=== PATIENT | male | born 2000 | race African-American/Black ===

== ENCOUNTER 2022-08-02 15:15 | Inpatient (IN) | payer MEDICAID, SELFPAY ==
--- NOTE | ~2022-08-02 | CT_ITS ---
EXAMINATION: CT CERVICAL SPINE WITHOUT CONTRAST; UNENHANCED CT OF THE HEAD. CLINICAL INFORMATION: Found outside. Altered mental status. COMPARISON: None TECHNIQUE: Routine unenhanced CT of the head with multiple coronal and sagittal reformatted images; routine unenhanced CT of the cervical spine with multiple coronal and sagittal reformatted images. This CT examination was performed using dose optimization techniques as appropriate, variously including the following: *Automated exposure control *Adjustment of mA and/or kV according to patient size (this includes techniques or standardized protocols for targeted exams where dose is matched to indication/reason for exam; i.e. extremities or head) *Use of iterative reconstruction technique DLP: 2063 mGy-cm FINDINGS: CT head: No intracranial hemorrhage, tumors or acute infarcts are noted. The ventricles and sulci are normal in size and configuration. No focal parenchymal lesions of the brain identified. The orbits and globes are normal in appearance. No significant opacification of the visualized paranasal sinuses, mastoid air cells and middle ear cavities. CT cervical spine: No fractures or acute appearing subluxations are identified. No arthropathic changes noted. The visualized lung apices are clear. No prevertebral fluid collections or soft tissue inflammatory changes identified. CT/CT head/brain wo IV con IMPRESSION: Unenhanced CT of the head: *No acute intracranial abnormalities. CT cervical spine: *No acute abnormalities.
--- NOTE | ~2022-08-02 | CT_ITS ---
EXAMINATION: CT abdomen pelvis wo IV con, CT chest wo IV con CLINICAL INFORMATION: Altered mental status. Trauma. Found on ground. COMPARISON: CT head and cervical spine 08/02/2022. TECHNIQUE: Unenhanced CT of the chest, abdomen and pelvis Intravenous Contrast: None This CT examination was performed using dose optimization techniques as appropriate, variously including the following: *Automated exposure control *Adjustment of mA and/or kV according to patient size (this includes techniques or standardized protocols for targeted exams where dose is matched to indication/reason for exam; i.e. extremities or head) *Use of iterative reconstruction technique DLP: 945 mGy-cm FINDINGS: Lungs: Portions of the lung apices are excluded from the image [id number]. The visualized lungs demonstrate no pulmonary consolidation or suspicious nodules. No pleural effusions or pneumothoraces are identified. The distended colon no lymphadenopathy. No abnormal fluid collections. Normal caliber of the thoracic ureter. Normal heart size. No pericardial thickening or fluid collections. CHEST WALL: No axillary lymphadenopathy. No soft tissue emphysematous changes or inflammatory changes identified. Liver: Normal. Biliary system: Normal. Physiologically distended gallbladder. Pancreas: Normal. Spleen: Normal. Adrenal glands: Normal. Kidneys: Normal. No urolithiasis. Urinary bladder: Physiologically distended. Normal in appearance. Pelvic viscera: Normal prostate and seminal vesicles. Gastrointestinal system: No free intraperitoneal fluid or gas collections identified. The appendix is not visualized. No pericecal inflammatory changes noted. Normal appearance of the sigmoid and small bowel mesentery is. No free intraperitoneal fluid or gas collections identified. Abdominal wall: No abdominal wall hernias. No subcutaneous emphysematous changes or inflammatory changes noted. Abdominal lymphovascular structures: No abnormalities identified. Osseous structures of the chest, abdomen pelvis: The upper ribs are partially excluded from the image [id number] as are portions of the clavicles and scapulae. Mild multilevel thoracic Schmorl's node deformities are visualized. CT/CT abdomen pelvis wo IV con IMPRESSION: Unenhanced CT of the chest, abdomen and pelvis: *No acute abnormalities identified. *The appendix is not visualized. As clinically indicated, the appendix could be assessed with IV contrast enhanced CT.
--- NOTE | ~2022-08-02 | CT_ITS ---
EXAMINATION: CT CERVICAL SPINE WITHOUT CONTRAST; UNENHANCED CT OF THE HEAD. CLINICAL INFORMATION: Found outside. Altered mental status. COMPARISON: None TECHNIQUE: Routine unenhanced CT of the head with multiple coronal and sagittal reformatted images; routine unenhanced CT of the cervical spine with multiple coronal and sagittal reformatted images. This CT examination was performed using dose optimization techniques as appropriate, variously including the following: *Automated exposure control *Adjustment of mA and/or kV according to patient size (this includes techniques or standardized protocols for targeted exams where dose is matched to indication/reason for exam; i.e. extremities or head) *Use of iterative reconstruction technique DLP: 2063 mGy-cm FINDINGS: CT head: No intracranial hemorrhage, tumors or acute infarcts are noted. The ventricles and sulci are normal in size and configuration. No focal parenchymal lesions of the brain identified. The orbits and globes are normal in appearance. No significant opacification of the visualized paranasal sinuses, mastoid air cells and middle ear cavities. CT cervical spine: No fractures or acute appearing subluxations are identified. No arthropathic changes noted. The visualized lung apices are clear. No prevertebral fluid collections or soft tissue inflammatory changes identified. CT/CT cervical spine wo IV con IMPRESSION: Unenhanced CT of the head: *No acute intracranial abnormalities. CT cervical spine: *No acute abnormalities.
--- NOTE | ~2022-08-02 | CT_ITS ---
EXAMINATION: CT abdomen pelvis wo IV con, CT chest wo IV con CLINICAL INFORMATION: Altered mental status. Trauma. Found on ground. COMPARISON: CT head and cervical spine 08/02/2022. TECHNIQUE: Unenhanced CT of the chest, abdomen and pelvis Intravenous Contrast: None This CT examination was performed using dose optimization techniques as appropriate, variously including the following: *Automated exposure control *Adjustment of mA and/or kV according to patient size (this includes techniques or standardized protocols for targeted exams where dose is matched to indication/reason for exam; i.e. extremities or head) *Use of iterative reconstruction technique DLP: 945 mGy-cm FINDINGS: Lungs: Portions of the lung apices are excluded from the image [id number]. The visualized lungs demonstrate no pulmonary consolidation or suspicious nodules. No pleural effusions or pneumothoraces are identified. The distended colon no lymphadenopathy. No abnormal fluid collections. Normal caliber of the thoracic ureter. Normal heart size. No pericardial thickening or fluid collections. CHEST WALL: No axillary lymphadenopathy. No soft tissue emphysematous changes or inflammatory changes identified. Liver: Normal. Biliary system: Normal. Physiologically distended gallbladder. Pancreas: Normal. Spleen: Normal. Adrenal glands: Normal. Kidneys: Normal. No urolithiasis. Urinary bladder: Physiologically distended. Normal in appearance. Pelvic viscera: Normal prostate and seminal vesicles. Gastrointestinal system: No free intraperitoneal fluid or gas collections identified. The appendix is not visualized. No pericecal inflammatory changes noted. Normal appearance of the sigmoid and small bowel mesentery is. No free intraperitoneal fluid or gas collections identified. Abdominal wall: No abdominal wall hernias. No subcutaneous emphysematous changes or inflammatory changes noted. Abdominal lymphovascular structures: No abnormalities identified. Osseous structures of the chest, abdomen pelvis: The upper ribs are partially excluded from the image [id number] as are portions of the clavicles and scapulae. Mild multilevel thoracic Schmorl's node deformities are visualized. CT/CT chest wo IV con IMPRESSION: Unenhanced CT of the chest, abdomen and pelvis: *No acute abnormalities identified. *The appendix is not visualized. As clinically indicated, the appendix could be assessed with IV contrast enhanced CT.
--- NOTE | 2022-08-02 15:28 | ECG_ITS ---
Test Reason : ETOH Blood Pressure : / mmHG Vent. Rate : 068 BPM Atrial Rate : 068 BPM P-R Int : 180 ms QRS Dur : 096 ms QT Int : 396 ms P-R-T Axes : 054 086 039 degrees QTc Int : 421 ms Normal sinus rhythm Normal ECG No previous ECGs available Referred By: Deloris Lyle Electronically Signed By:JOSÉ MIGUEL DORADO
--- NOTE | 2022-08-02 15:35 | ED_ITS ---
HPI - Altered Mental Status General Chief Complaint: ETOH/Substance Use Stated Complaint: AMS DRUG USE Time Seen by Provider: 08/02/22 15:27 Source: patient and EMS Mode of arrival: EMS Limitations: altered mental status History of Present Illness HPI narrative: This is a 21-year-old male with a known medical history presenting to the emergency department via ambulance for altered mental status. Most of the hist ory was provided by EMS as patient is altered mental, according to EMS patient was found outside of an apartment building minimally responsive, he was sweating and sprawled out on the ground, he has a small abrasion to the right side of his forehead, unclear if fell or hit his head, patient unable to answer this question. According to patient's brother patient smoked laced marijuana earlier today however patient denies. Patient denies SI and HI. Able to nod his head to answer questions however not speaking much he tells me he is too tired. MD complaint: altered mental status Related Data Home Medications Medication Instructions Recorded Confirmed No Known Home Meds 08/02/22 08/02/22 Allergies Allergy/AdvReac Type Severity Reaction Status Date / Time No Known Allergies Allergy Verified 08/02/22 15:48 Review of Systems Review of Systems: Yes Unobtainable due to mental status PMFSH Past Medical History Attestation statement: The following information was validated with the patient. Source: old records reviewed and nursing notes reviewed Social History Social History Advance Directives: No Advance Directives Information Provided: No Physical Exam ED Vital Signs: Vital Signs - 24 hr 08/02/22 15:46 Pulse Rate 58 Respiratory Rate 18 Blood Pressure 131/79 Pulse Oximetry 99 Oxygen Delivery Method Room Air BMI result Body Mass Index 26.4 vss Appearance: Alert.? Oriented X3.? No acute distress.? Patient appears drowsy. Head: Normocephalic, + abrasion to right side of forehead , no step-offs or deformities Eyes: Pupils equal, round and reactive to light.? ENT: Pharynx normal.? Neck: Normal inspection.? Neck supple.? CVS: Normal heart rate and rhythm.? Pulses normal.? Respiratory: No respiratory distress.? Breath sounds normal.? Abdomen: Soft and nontender.? Skin: Skin warm and dry.? Normal skin color.? Normal skin turgor.? Extremities: No lower extremity edema.? No calf ttp. 5/5 strength to bilateral upper and lower extremities + abrasions to b/l knukles Back: No midline tenderness, no C-spine tenderness, full range of motion, no CVA tenderness bilaterally Neuro: Awake, alert, moving all extremities. Oriented to person, place, time and situation. No motor deficit.? No sensory deficit. CN 2-12 intact Course Reevaluation(s) Reevaluation #1: I was called over to the patient's bedside, patient had a 22 second long tonic clonic seizure, Versed was going to be administered however patient stopped seizing, at this time seizure protocols in place. Family member at the bedside reports that patient is usually slow mentally, and that they think that he was taking advantage of and given laced marijuana. Time: 16:00 Reevaluation #2: CBC with no acute findings. Chemistry pending. Ethanol negative. CASTILLO and UA pending. Patient currently being brought to CT scan, delay in obtaining CT secondary to waiting for CT to clear out from another patient. Time: 16:27 Reevaluation #3: CASTILLO positive for marijuana. UA with no signs of acute infection. Chemistry with slightly elevated magnesium, CPK in the 400s, not consistent with rhabdomyolysis however patient receiving hydration. CT of head, cervical spine, abdomen and pelvis and chest with no acute findings. Patient will be admitted to the hospitalist for her new onset seizures, altered mental status. Time: 20:18 MDM - Altered Mental Status [facility] Narrative Medical decision making narrative: 1520 21-year-old male presenting for altered mental status, brother reports that he may have smoked laced marijuana. Patient tells me he is too tired to answer any of my questions, however alert and oriented x3. Physical examination with a small abrasion to the right side of patient's forehead, patient alert and oriented x3, following basic commands however dozing off during my examination, pupils dilated, regular rate and rhythm, lungs clear abdomen soft nontender nondistended. Neuro nonfocal NIH stroke scale of 0, GCS of 15. Plan at this time is to obtain basic labs, urine, CASTILLO, drug tox, head CT. Medical Records Attestation: I reviewed the patient's medical records. Lab Data Attestation: I reviewed the patient's lab results. Result diagrams: 08/02/22 15:57 08/02/22 15:57 Labs: Lab Results 08/02/22 08/02/22 08/02/22 Range/Units 15:57 15:57 15:57 WBC 7.1 (4.8-10.8) X10*3/uL RBC 5.18 (4.60-5.80) X10*6/uL Hgb 16.0 (14.0-18.0) g/dl Hct 45.9 (42.0-52.0) % MCV 88.6 (80.0-98.0) fL MCH 30.9 (27.0-33.0) pg MCHC 34.9 (31.0-36.0) g/dl RDW 12.3 (11.0-16.0) % Plt Count 234 (160-400) X10*3/uL MPV 9.9 (9.4-12.4) fL Immature Gran % (Auto) 0.4 (0.0-0.4) % Neut % (Auto) 71.4 (45-73) % Lymph % (Auto) 23.7 (20-40) % [place] % (Auto) 3.0 (2-11) % Eos % (Auto) 1.1 (0-4) % Baso % (Auto) 0.4 (0-2) % Lymph # (Auto) 1.7 (1.2-4.9) X10*3/uL [place] # (Auto) 0.2 (0.1-1.2) X10*3/uL Eos # (Auto) 0.1 (0.0-0.4) X10*3/uL Baso # (Auto) 0.0 (0.0-0.2) X10*3/uL Abs Immat Gran (auto) 0.03 (0.00-0.03) X10*3/uL Absolute Neuts (auto) 5.0 (2.0-8.3) x10*3/uL Absolute Nucleated RBC 0.000 (0.0-0.012) X10*3/uL Nucleated RBC % (auto) 0.0 (0.0-0.2) /100WBC Sodium 141 (135-145) mmol/L Potassium 4.5 (3.3-5.1) mmol/L Chloride 111 H (96-108) mmol/L Carbon Dioxide 15 L (22-29) mmol/L Anion Gap 20 (12-20) BUN 10 (9-16) mg/dL Creatinine 1.18 (0.5-1.4) mg/dL Estim Creat Clear Calc 110.9 Estimated GFR > 60 Random Glucose 75 (60-115) mg/dL Calcium 9.3 (8.4-10.2) mg/dL Magnesium 2.9 H (1.6-2.6) mg/dL Total Bilirubin 0.5 (0.0-1.0) mg/dL AST 24 (5-37) U/L ALT 16 (0-40) U/L Alkaline Phosphatase 60 (39-117) U/L Total Creatine Kinase 472 H (38-174) U/L Total Protein 7.5 (6.5-8.0) g/dL Albumin 4.4 (3.5-5.0) g/dL Urine Color Urine Appearance Urine pH (5.0-9.0) Ur Specific [place] (1.005-1.025) Urine Protein (Neg-Trace) mg/dL Urine Glucose (UA) (Negative) mg/dL Urine Ketones (Negative) mg/dL Urine Blood (Negative) Urine Nitrite (Negative) Ur Leukocyte Esterase (Negative) Urine RBC (0-2) /HPF Urine WBC (0-5) /HPF Ur Squamous Epith Cells (0-2) /HPF Urine Bacteria (None Seen) Hyaline Casts (0-2) /LPF Urine Opiates Screen (Not Detect) Urine Fentanyl Screen (Not Detect) Ur Barbiturates Screen (Not Detect) Ur Phencyclidine Scrn (Not Detect) Ur Amphetamines Screen (Not Detect) U Benzodiazepines Scrn (Not Detect) Urine Cocaine Screen (Not Detect) U Marijuana (THC) Screen (Not Detect) Ethyl Alcohol < 10 mg/dL 08/02/22 08/02/22 Range/Units 16:28 16:28 WBC (4.8-10.8) X10*3/uL RBC (4.60-5.80) X10*6/uL Hgb (14.0-18.0) g/dl Hct (42.0-52.0) % MCV (80.0-98.0) fL MCH (27.0-33.0) pg MCHC (31.0-36.0) g/dl RDW (11.0-16.0) % Plt Count (160-400) X10*3/uL MPV (9.4-12.4) fL Immature Gran % (Auto) (0.0-0.4) % Neut % (Auto) (45-73) % Lymph % (Auto) (20-40) % [place] % (Auto) (2-11) % Eos % (Auto) (0-4) % Baso % (Auto) (0-2) % Lymph # (Auto) (1.2-4.9) X10*3/uL [place] # (Auto) (0.1-1.2) X10*3/uL Eos # (Auto) (0.0-0.4) X10*3/uL Baso # (Auto) (0.0-0.2) X10*3/uL Abs Immat Gran (auto) (0.00-0.03) X10*3/uL Absolute Neuts (auto) (2.0-8.3) x10*3/uL Absolute Nucleated RBC (0.0-0.012) X10*3/uL Nucleated RBC % (auto) (0.0-0.2) /100WBC Sodium (135-145) mmol/L Potassium (3.3-5.1) mmol/L Chloride (96-108) mmol/L Carbon Dioxide (22-29) mmol/L Anion Gap (12-20) BUN (9-16) mg/dL Creatinine (0.5-1.4) mg/dL Estim Creat Clear Calc Estimated GFR Random Glucose (60-115) mg/dL Calcium (8.4-10.2) mg/dL Magnesium (1.6-2.6) mg/dL Total Bilirubin (0.0-1.0) mg/dL AST (5-37) U/L ALT (0-40) U/L Alkaline Phosphatase (39-117) U/L Total Creatine Kinase (38-174) U/L Total Protein (6.5-8.0) g/dL Albumin (3.5-5.0) g/dL Urine Color Yellow Urine Appearance Clear Urine pH 5.5 (5.0-9.0) Ur Specific [place] 1.020 (1.005-1.025) Urine Protein 30 (1+) H (Neg-Trace) mg/dL Urine Glucose (UA) Negative (Negative) mg/dL Urine Ketones Trace (Negative) mg/dL Urine Blood Trace H (Negative) Urine Nitrite Negative (Negative) Ur Leukocyte Esterase Negative (Negative) Urine RBC 0-2 (0-2) /HPF Urine WBC 0-5 (0-5) /HPF Ur Squamous Epith Cells 0-2 (0-2) /HPF Urine Bacteria None Seen (None Seen) Hyaline Casts 0-2 (0-2) /LPF Urine Opiates Screen Not Detected (Not Detect) Urine Fentanyl Screen Not Detected (Not Detect) Ur Barbiturates Screen Not Detected (Not Detect) Ur Phencyclidine Scrn Not Detected (Not Detect) Ur Amphetamines Screen Not Detected (Not Detect) U Benzodiazepines Scrn Not Detected (Not Detect) Urine Cocaine Screen Not Detected (Not Detect) U Marijuana (THC) Screen POSITIVE H (Not Detect) Ethyl Alcohol mg/dL ECG Data ECG #1: Attestation: I personally reviewed and interpreted this ECG as follows: ECG interpretation date: 08/02/22 ECG interpretation time: 16:26 Prior ECG tracings: available for review Interpretation: Ventricular rate of 68, IA normal, QRS normal, QT/QTC normal. EKG with normal sinus rhythm no ST elevations or inversions concerning for ischemia. At this t anastasiia no previous to compare with Critical Care Time Critical Care Time Critical Care Time: No Discharge Plan Discharge Clinical Impression: Altered mental status, Seizure Patient Disposition: Admitted As Inpatient Prescriptions: No Action No Known Home Meds
[2022-08-02 15:44] VITALS: BP 138/84; PULSE 75; O2SAT 97
[2022-08-02 15:46] VITALS: BP 131/79; PULSE 58; RESP 18; O2SAT 99; BMI 26.4
[2022-08-02 16:02] LABS: MANUAL DIFF FLAG NO
[2022-08-02 16:08] LABS: Basophils Percent Auto 0.4 % (0-2); Eosinophils Absolute Auto 0.1 X10*3/uL (0.0-0.4); Eosinophils Percent Auto 1.1 % (0-4); Hematocrit 45.9 % (42.0-52.0); Imm Gran Abs Auto 0.03 X10*3/uL (0.00-0.03); Imm Gran Pct Auto 0.4 % (0.0-0.4); Lymphocytes Absolute Auto 1.7 X10*3/uL (1.2-4.9); Lymphocytes Percent Auto 23.7 % (20-40); Mean Corpuscular HGB Conc 34.9 g/dl (31.0-36.0); Mean Corpuscular Hemoglobin 30.9 pg (27.0-33.0); Mean Corpuscular Volume 88.6 fL (80.0-98.0); Mean Platelet Volume 9.9 fL (9.4-12.4); Monocytes Absolute Auto 0.2 X10*3/uL (0.1-1.2); Neutrophils Percent Auto 71.4 % (45-73); Platelet Count 234 X10*3/uL (160-400); Red Blood Count 5.18 X10*6/uL (4.60-5.80); Red Cell Distribution Width 12.3 % (11.0-16.0); White Blood Count 7.1 X10*3/uL (4.8-10.8)
[2022-08-02 16:18] LABS: Ethanol < 10 mg/dL
--- NOTE | 2022-08-02 16:26 | PHA.MEDREC ---
Pharmacy Consult ? Medication Reconciliation Pharmacy has completed the medication reconciliation. Patient's niece reported patient was on medications when he was younger, but has not been on anything recently. PDMP and claim history also report no medications. Cynthia Boudreaux, PharmD
[2022-08-02 16:52] LABS: Appearance Urine Clear; Color Urine Yellow; Glucose Urine UA Negative (Negative); Leukocyte Esterase Urine Negative (Negative); Nitrite Urine Negative (Negative); PH 5.5 (5.0-9.0); Urine Blood Trace (Negative); Urine Ketones Trace mg/dL (Negative); Urine Protein 30 (1+) mg/dL (Neg-Trace)
[2022-08-02 16:54] LABS: Amphetamine Screen Urine Not Detected (Not Detect); Barbiturates, Urine Not Detected (Not Detect); Benzodiazepines Screen Urine Not Detected (Not Detect); Cannabinoid Screen Urine POSITIVE (Not Detect); Cocaine Screen Urine Not Detected (Not Detect); Fentanyl, urine Not Detected (Not Detect); Opiate Screen Urine Not Detected (Not Detect); Phencyclidine Screen Urine Not Detected (Not Detect)
[2022-08-02 17:00] LABS: Bacteria Urine None Seen (None Seen); Hyaline Casts Urine 0-2 /LPF (0-2); RBC Urine 0-2 /HPF (0-2); Squamous Epithelial Cell Urine 0-2 /HPF (0-2); WBC Urine 0-5 /HPF (0-5)
[2022-08-02] MEDS: Midazolam HCl/PF 2 MG/2 ML VIAL IVPUSH (17:24)
[2022-08-02] MEDS: Midazolam HCl/PF 2 MG/2 ML VIAL 1 MG IVPUSH (17:25)
[2022-08-02] MEDS: ondansetron HCL 4 MG/2 ML VIAL IVPUSH (17:25)
[2022-08-02] MEDS: 0.9 % Sodium Chloride 1,000 ML 999 ML IV (17:26)
[2022-08-02 17:41] LABS: Alanine Aminotransferase 16 U/L (0-40); Albumin Level 4.4 g/dL (3.5-5.0); Alkaline Phosphatase 60 U/L (39-117); Anion Gap 20 (12-20); Aspartate Amino Transferase 24 U/L (5-37); Bilirubin Total 0.5 mg/dL (0.0-1.0); Blood Urea Nitrogen 10 mg/dL (9-16); Calcium 9.3 mg/dL (8.4-10.2); Carbon Dioxide 15 mmol/L (22-29); Chloride 111 mmol/L (96-108); Creatinine Clr Calc Pharmacy 110.9; Estimated Glomerular Filt Rate > 60; Glucose Random 75 mg/dL (60-115); Magnesium 2.9 mg/dL (1.6-2.6); Potassium 4.5 mmol/L (3.3-5.1); Sodium 141 mmol/L (135-145); Total Protein 7.5 g/dL (6.5-8.0)
--- NOTE | 2022-08-02 18:57 | PC.NURSE ---
This nurse witnessed pt seize for a total time of 22 seconds. Pt froze, contracted their arms and legs then began to shake. Pt did throw up once, SYLVESTER Cortez suctioned pt. Pt post-ictal sleepy, and not responsive to voice commands. Responsive to touch. CIARA Forrest witnessed end of seizure.
--- NOTE | 2022-08-02 19:47 | MHC.RECOVSUP ---
? Reason for consult:EOTH o Current location:ED02 o Identified substance use concern: - Support ? Intervention: o Harm reduction discussion ? Plan:Going home ? Additional information:Pt says he doesn't have an issue with alcohol, and doesn't need detox/treatment
--- NOTE | 2022-08-02 20:20 | ECG_ITS ---
Test Reason : repeat Blood Pressure : / mmHG Vent. Rate : 052 BPM Atrial Rate : 052 BPM P-R Int : 150 ms QRS Dur : 100 ms QT Int : 422 ms P-R-T Axes : 047 075 031 degrees QTc Int : 392 ms Sinus bradycardia Otherwise normal ECG When compared with ECG of 02-AUG-2022 16:00, No significant change was found Referred By: Deloris Lyle Electronically Signed By:OJSÉ MIGUEL DORADO
[2022-08-02 21:04] VITALS: PULSE 55
--- NOTE | 2022-08-02 21:06 | P.HPHOSP_ITS ---
History of Present Illness Date of Service: 08/02/22 Chief Complaint: Confusion 21-year-old male with no significant past medical history presented to the hospital with a chief complaint of confusion. At the time of my entry patient is alert and oriented, denies any complaints. Mentions is not sure why he was brought to the hospital. Denies any prior history of seizures. Denies any chest pain palpitations lightheadedness or dizziness. Denies any fever chills cough or sputum production. Denies any headaches numbness tingling or focal weakness. Denies any recent travel or sick contacts. Mentions he occasionally uses cannabis. Denies any alcohol the other illicit drug use. Review of all other systems is negative except mentioned above ER course: Per ER team patient was initially brought in by the family because of confusion, found on the ground. After came to the hospital patient had 22nd episode of tonic-clonic seizure with tongue biting. Patient was given Versed. Patient was briefly postictal. On labs noted to have slightly decreased serum bicarb otherwise within normal limit s; lactate levels pending. CT head showed no acute findings. Admitted for further management for possible new onset seizures. [facility] Pertinent family history: Reviewed Social History Advance Directives: No Advance Directives Information Provided: No Meds Allergies Allergy/AdvReac Type Severity Reaction Status Date / Time No Known Allergies Allergy Verified 08/02/22 15:48 Active Medications: Current Medications Heparin Sodium (Porcine) (Heparin Sodium,Porcine 5,000 Unit/Ml Vial) 5,000 unit SUBCUT Q8H ON LICENSE OF [facility] Pharmacy Consult (Consult Rx Perform Med Rec) 1 each MISCELLANE ONCE PRN PRN Reason: Consult order Sodium Chloride (0.9 % Sodium Chloride Flush 3 Ml Syringe) 3 ml IVFLUSH QSHIFT ON LICENSE OF [facility] Home Medications Medication Instructions Recorded Confirmed Last Taken Type No Known Home Meds 08/02/22 08/02/22 Unknown History Physical Exam Vital Signs and Narrative: Vital Signs: Last Vital Signs Pulse 58 08/02/22 15:46 Resp 18 08/02/22 15:46 BP 131/79 08/02/22 15:46 Pulse Ox 99 08/02/22 15:46 O2 Del Method 08/02/22 15:46 BMI result Body Mass Index 26.4 Gen: Appears be in no acute distress HEENT: NCAT, Moist mucosa. Pulmonary: Vesicular breath sounds, fair air entry CVS: Normal S1-S2 Abdomen: BS+, Soft, Nontender Extremities: Warm well perfused Neuro: Alert and awake. Results Labs CBC and Chem 7: 08/02/22 15:57 08/02/22 15:57 Labs: Laboratory Results - last 24 hr 08/02/22 08/02/22 08/02/22 15:57 15:57 15:57 MCV 88.6 MCH 30.9 MCHC 34.9 RDW 12.3 Plt Count 234 MPV 9.9 Immature Gran % (Auto) 0.4 Neut % (Auto) 71.4 Lymph % (Auto) 23.7 [place] % (Auto) 3.0 Eos % (Auto) 1.1 Baso % (Auto) 0.4 Lymph # (Auto) 1.7 [place] # (Auto) 0.2 Eos # (Auto) 0.1 Baso # (Auto) 0.0 Abs Immat Gran (auto) 0.03 Absolute Neuts (auto) 5.0 Absolute Nucleated RBC 0.000 Nucleated RBC % (auto) 0.0 Anion Gap 20 Estim Creat Clear Calc 110.9 Estimated GFR > 60 Random Glucose 75 Calcium 9.3 Magnesium 2.9 H Total Bilirubin 0.5 AST 24 ALT 16 Alkaline Phosphatase 60 Total Creatine Kinase 472 H Total Protein 7.5 Albumin 4.4 Urine Color Urine Appearance Urine pH Ur Specific [place] Urine Protein Urine Glucose (UA) Urine Ketones Urine Blood Urine Nitrite Ur Leukocyte Esterase Urine RBC Urine WBC Ur Squamous Epith Cells Urine Bacteria Hyaline Casts Urine Opiates Screen Urine Fentanyl Screen Ur Barbiturates Screen Ur Phencyclidine Scrn Ur Amphetamines Screen U Benzodiazepines Scrn Urine Cocaine Screen U Marijuana (THC) Screen Ethyl Alcohol < 10 08/02/22 08/02/22 16:28 16:28 MCV MCH MCHC RDW Plt Count MPV Immature Gran % (Auto) Neut % (Auto) Lymph % (Auto) [place] % (Auto) Eos % (Auto) Baso % (Auto) Lymph # (Auto) [place] # (Auto) Eos # (Auto) Baso # (Auto) Abs Immat Gran (auto) Absolute Neuts (auto) Absolute Nucleated RBC Nucleated RBC % (auto) Anion Gap Estim Creat Clear Calc Estimated GFR Random Glucose Calcium Magnesium Total Bilirubin AST ALT Alkaline Phosphatase Total Creatine Kinase Total Protein Albumin Urine Color Yellow Urine Appearance Clear Urine pH 5.5 Ur Specific [place] 1.020 Urine Protein 30 (1+) H Urine Glucose (UA) Negative Urine Ketones Trace Urine Blood Trace H Urine Nitrite Negative Ur Leukocyte Esterase Negative Urine RBC 0-2 Urine WBC 0-5 Ur Squamous Epith Cells 0-2 Urine Bacteria None Seen Hyaline Casts 0-2 Urine Opiates Screen Not Detected Urine Fentanyl Screen Not Detected Ur Barbiturates Screen Not Detected Ur Phencyclidine Scrn Not Detected Ur Amphetamines Screen Not Detected U Benzodiazepines Scrn Not Detected Urine Cocaine Screen Not Detected U Marijuana (THC) Screen POSITIVE H Ethyl Alcohol Imaging Radiologist's Impressions: Impressions Head CT 08/02/22 17:21 IMPRESSION: Unenhanced CT of the head: *No acute intracranial abnormalities. CT cervical spine: *No acute abnormalities. Cervical Spine CT 08/02/22 17:23 IMPRESSION: Unenhanced CT of the head: *No acute intracranial abnormalities. CT cervical spine: *No acute abnormalities. Abdomen/Pelvis CT 08/02/22 17:24 IMPRESSION: Unenhanced CT of the chest, abdomen and pelvis: *No acute abnormalities identified. *The appendix is not visualized. As clinically indicated, the appendix could be assessed with IV contrast enhanced CT. Chest CT 08/02/22 17:27 IMPRESSION: Unenhanced CT of the chest, abdomen and pelvis: *No acute abnormalities identified. *The appendix is not visualized. As clinically indicated, the appendix could be assessed with IV contrast enhanced CT. Assessment and Plan (1) Seizure: Status: Acute Plan 21-year-old male with no significant past medical history presented to the hospital with a chief complaint of confusion./seizure. Seizure: Patient currently alert and awake, oriented x3. Exam nonfocal. CT head showed no acute findings. Seizure precautions Versed p.r.n. Neurology consult U tox positive for cannabis NPO Gentle IV fluids DVT prophylaxis: Subcu heparin Code status: Full code Quality Stroke Does the patient have a stroke diagnosis?: No VTE Prior VTE?: No VTE Risk Level:: Medical - moderate - high VTE Device Contraindication: Treatment Not Indicated VTE Drug Contraindication: N/A - Med Ordered
[2022-08-02 21:30] LABS: Lactic Acid 2.2 mmol/L (0.5-2.0)
[2022-08-02] MEDS: Dextrose 5 % and 0.45 % NaCl 1,000 ML 100 ML IVCONT (22:27)
[2022-08-02 22:40] VITALS: BP 106/70; PULSE 56; RESP 14; O2SAT 100
[2022-08-02 23:05] LABS: Reflex Lactate? Lactic Acid Added
[2022-08-02 23:59] LABS: ~Lactic Acid-LAB USE ONLY 2.7 mmol/L (0.5-2.0)
[2022-08-03 00:10] LABS: COVID-19 Test Negative (Negative)
[2022-08-03] MEDS: 0.9 % Sodium Chloride Flush 3 ML SYRINGE IVFLUSH (00:42)
[2022-08-03 01:43] LABS: Reflex Lactate? 2 Y
[2022-08-03 02:00] VITALS: BP 102/61; PULSE 49; O2SAT 100
[2022-08-03 02:21] LABS: ~Lactic Acid-LAB USE ONLY 1.2 mmol/L (0.5-2.0)
[2022-08-03 03:36] VITALS: BP 121/67; PULSE 47; RESP 18; TEMP 37.2; O2SAT 99
--- NOTE | 2022-08-03 05:42 | PC.NURSE ---
Report to inpatient RN. Will transfer patient in 10minutes.
[2022-08-03 06:14] LABS: MANUAL DIFF FLAG NO
[2022-08-03 06:16] VITALS: BP 112/60; PULSE 54; RESP 18; TEMP 36.7; O2SAT 93
[2022-08-03 06:17] LABS: Basophils Percent Auto 0.2 % (0-2); Eosinophils Percent Auto 0.1 % (0-4); Hematocrit 44.6 % (42.0-52.0); Hemoglobin 15.9 g/dl (14.0-18.0); Imm Gran Abs Auto 0.04 X10*3/uL (0.00-0.03); Imm Gran Pct Auto 0.3 % (0.0-0.4); Lymphocytes Absolute Auto 1.8 X10*3/uL (1.2-4.9); Mean Corpuscular HGB Conc 35.7 g/dl (31.0-36.0); Mean Corpuscular Hemoglobin 31.5 pg (27.0-33.0); Mean Corpuscular Volume 88.5 fL (80.0-98.0); Monocytes Absolute Auto 0.7 X10*3/uL (0.1-1.2); Monocytes Percent Auto 5.7 % (2-11); Neutrophils Absolute Auto 9.2 x10*3/uL (2.0-8.3); Neutrophils Percent Auto 78.7 % (45-73); Platelet Count 202 X10*3/uL (160-400); Red Blood Count 5.04 X10*6/uL (4.60-5.80); Red Cell Distribution Width 12.3 % (11.0-16.0); White Blood Count 11.6 X10*3/uL (4.8-10.8)
[2022-08-03] MEDS: Heparin Sodium,Porcine 5,000 UNIT/ML VIAL 5000 UNIT SUBCUT (06:31)
[2022-08-03 06:33] LABS: Anion Gap 15 (12-20); Blood Urea Nitrogen 9 mg/dL (9-16); Calcium 9.2 mg/dL (8.4-10.2); Carbon Dioxide 23 mmol/L (22-29); Chloride 107 mmol/L (96-108); Creatinine Clr Calc Pharmacy 110.9; Estimated Glomerular Filt Rate > 60; Glucose Random 103 mg/dL (60-115); Sodium 141 mmol/L (135-145)
[2022-08-03] MEDS: Dextrose 5 % and 0.45 % NaCl 1,000 ML 100 ML IVCONT ×2 (07:31→09:50)
[2022-08-03 11:27] VITALS: BP 122/70; PULSE 50; RESP 17; TEMP 36.6; O2SAT 98
--- NOTE | 2022-08-03 12:56 | P.DS_ITS ---
DS: Providers Provider Date of Service: 08/03/22 Date of admission: 08/02/22 21:04 Date of discharge: 08/03/22 Primary care physician: [facility] Consults: 08/02/22 21:04 Consult to Neurology Routine Consulting Provider: [facility] Reason for consultation: Seizure DS: Diagnosis Discharge Diagnosis (1) Seizure: Status: Acute DS: Summary Hospital Course Hospital Course: 21-year-old male with no significant past medical history presented to the hospital with a chief complaint of confusion.?ER course: Per ER team patient was initially brought in by the family because of confusion, found on the ground.? After came to the hospital patient had 22nd episode of tonic-clonic seizure with tongue biting.? Patient was given Versed.? Patient was briefly postictal.? On labs noted to have slightly decreased serum bicarb otherwise within normal limits; lactate levels pending.? CT head showed no acute findings.? Admitted for further management for possible new onset seizures. hospital course Admitted overnight where her no further seizures were observed. Discussed with Neurology; discharge on Keppra 500 b.i.d. and set up office appointment later this week. He is discharged in stable/improved condition Time Spent with Patient Time attestation: Total time spent providing and/or coordinating discharge services: Discharge coordination time: Greater than 30 minutes Quality: Safe Use of Opioids Does Pt have an Active Cancer Diagnosis on the Problem List?: No Quality: Stroke Does the patient have a stroke diagnosis?: No Physical Exam Vital Signs: Vital Signs: Last Vital Signs Temp 97.8 F 08/03/22 11:27 Pulse 50 08/03/22 11:27 Resp 17 08/03/22 11:27 BP 122/70 08/03/22 11:27 Pulse Ox 98 08/03/22 11:27 O2 Del Method 08/03/22 11:27 BMI result Body Mass Index 26.4 Const: Other: awake alert oriented x3 no acute distress Resp: Other: clear to auscultation bilaterally no rales rhonchi or wheezes Cardio: Other: soft nontender nondistended normoactive bowel sounds GI: Other: soft nontender nondistended normoactive bowel sounds Neuro: Other: cranial nerves 2-12 grossly intact as tested. Motor is 5/5 all extremities. Sensation is intact cognition is appropriate Extrem: Other: no edema bilateral DS: Data Data Completed and Pending Labs on day of discharge: Laboratory Results - last 24 hr 08/02/22 08/02/22 08/02/22 15:57 15:57 15:57 WBC 7.1 RBC 5.18 Hgb 16.0 Hct 45.9 MCV 88.6 MCH 30.9 MCHC 34.9 RDW 12.3 Plt Count 234 MPV 9.9 Immature Gran % (Auto) 0.4 Neut % (Auto) 71.4 Lymph % (Auto) 23.7 [place] % (Auto) 3.0 Eos % (Auto) 1.1 Baso % (Auto) 0.4 Lymph # (Auto) 1.7 [place] # (Auto) 0.2 Eos # (Auto) 0.1 Baso # (Auto) 0.0 Abs Immat Gran (auto) 0.03 Absolute Neuts (auto) 5.0 Absolute Nucleated RBC 0.000 Nucleated RBC % (auto) 0.0 Sodium 141 Potassium 4.5 Chloride 111 H Carbon Dioxide 15 L Anion Gap 20 BUN 10 Creatinine 1.18 Estim Creat Clear Calc 110.9 Estimated GFR > 60 Random Glucose 75 Lactic Acid Lactic Acid F/U @ 2Hr Lactic Acid F/U @ 4Hr Calcium 9.3 Magnesium 2.9 H Total Bilirubin 0.5 AST 24 ALT 16 Alkaline Phosphatase 60 Total Creatine Kinase 472 H Total Protein 7.5 Albumin 4.4 Urine Color Urine Appearance Urine pH Ur Specific Shannon Urine Protein Urine Glucose (UA) Urine Ketones Urine Blood Urine Nitrite Ur Leukocyte Esterase Urine RBC Urine WBC Ur Squamous Epith Cells Urine Bacteria Hyaline Casts Urine Opiates Screen Urine Fentanyl Screen Ur Barbiturates Screen Ur Phencyclidine Scrn Ur Amphetamines Screen U Benzodiazepines Scrn Urine Cocaine Screen U Marijuana (THC) Screen Ethyl Alcohol < 10 COVID-19 ([facility]) COVID-19 Clin Com 08/02/22 08/02/22 08/02/22 16:28 16:28 21:01 WBC RBC Hgb Hct MCV MCH MCHC RDW Plt Count MPV Immature Gran % (Auto) Neut % (Auto) Lymph % (Auto) [place] % (Auto) Eos % (Auto) Baso % (Auto) Lymph # (Auto) [place] # (Auto) Eos # (Auto) Baso # (Auto) Abs Immat Gran (auto) Absolute Neuts (auto) Absolute Nucleated RBC Nucleated RBC % (auto) Sodium Potassium Chloride Carbon Dioxide Anion Gap BUN Creatinine Estim Creat Clear Calc Estimated GFR Random Glucose Lactic Acid 2.2 H* Lactic Acid F/U @ 2Hr Lactic Acid F/U @ 4Hr Calcium Magnesium Total Bilirubin AST ALT Alkaline Phosphatase Total Creatine Kinase Total Protein Albumin Urine Color Yellow Urine Appearance Clear Urine pH 5.5 Ur Specific Shannon 1.020 Urine Protein 30 (1+) H Urine Glucose (UA) Negative Urine Ketones Trace Urine Blood Trace H Urine Nitrite Negative Ur Leukocyte Esterase Negative Urine RBC 0-2 Urine WBC 0-5 Ur Squamous Epith Cells 0-2 Urine Bacteria None Seen Hyaline Casts 0-2 Urine Opiates Screen Not Detected Urine Fentanyl Screen Not Detected Ur Barbiturates Screen Not Detected Ur Phencyclidine Scrn Not Detected Ur Amphetamines Screen Not Detected U Benzodiazepines Scrn Not Detected Urine Cocaine Screen Not Detected U Marijuana (THC) Screen POSITIVE H Ethyl Alcohol COVID-19 ([facility]) COVID-19 [employer] Com 08/02/22 08/02/22 08/03/22 23:39 23:51 02:04 WBC RBC Hgb Hct MCV MCH MCHC RDW Plt Count MPV Immature Gran % (Auto) Neut % (Auto) Lymph % (Auto) [place] % (Auto) Eos % (Auto) Baso % (Auto) Lymph # (Auto) [place] # (Auto) Eos # (Auto) Baso # (Auto) Abs Immat Gran (auto) Absolute Neuts (auto) Absolute Nucleated RBC Nucleated RBC % (auto) Sodium Potassium Chloride Carbon Dioxide Anion Gap BUN Creatinine Estim Creat Clear Calc Estimated GFR Random Glucose Lactic Acid Lactic Acid F/U @ 2Hr 2.7 H* Lactic Acid F/U @ 4Hr 1.2 Calcium Magnesium Total Bilirubin AST ALT Alkaline Phosphatase Total Creatine Kinase Total Protein Albumin Urine Color Urine Appearance Urine pH Ur Specific Shannon Urine Protein Urine Glucose (UA) Urine Ketones Urine Blood Urine Nitrite Ur Leukocyte Esterase Urine RBC Urine WBC Ur Squamous Epith Cells Urine Bacteria Hyaline Casts Urine Opiates Screen Urine Fentanyl Screen Ur Barbiturates Screen Ur Phencyclidine Scrn Ur Amphetamines Screen U Benzodiazepines Scrn Urine Cocaine Screen U Marijuana (THC) Screen Ethyl Alcohol COVID-19 ([facility]) Negative COVID-19 [employer] Com See Note 08/03/22 08/03/22 06:03 06:03 WBC 11.6 H RBC 5.04 Hgb 15.9 Hct 44.6 MCV 88.5 MCH 31.5 MCHC 35.7 RDW 12.3 Plt Count 202 MPV 10.0 Immature Gran % (Auto) 0.3 Neut % (Auto) 78.7 H Lymph % (Auto) 15.0 L [place] % (Auto) 5.7 Eos % (Auto) 0.1 Baso % (Auto) 0.2 Lymph # (Auto) 1.8 [place] # (Auto) 0.7 Eos # (Auto) 0.0 Baso # (Auto) 0.0 Abs Immat Gran (auto) 0.04 H Absolute Neuts (auto) 9.2 H Absolute Nucleated RBC 0.000 Nucleated RBC % (auto) 0.0 Sodium 141 Potassium 4.0 Chloride 107 Carbon Dioxide 23 Anion Gap 15 BUN 9 Creatinine 1.18 Estim Creat Clear Calc 110.9 Estimated GFR > 60 Random Glucose 103 D Lactic Acid Lactic Acid F/U @ 2Hr Lactic Acid F/U @ 4Hr Calcium 9.2 Magnesium Total Bilirubin AST ALT Alkaline Phosphatase Total Creatine Kinase Total Protein Albumin Urine Color Urine Appearance Urine pH Ur Specific Shannon Urine Protein Urine Glucose (UA) Urine Ketones Urine Blood Urine Nitrite Ur Leukocyte Esterase Urine RBC Urine WBC Ur Squamous Epith Cells Urine Bacteria Hyaline Casts Urine Opiates Screen Urine Fentanyl Screen Ur Barbiturates Screen Ur Phencyclidine Scrn Ur Amphetamines Screen U Benzodiazepines Scrn Urine Cocaine Screen U Marijuana (THC) Screen Ethyl Alcohol COVID-19 ([facility]) COVID-19 Clin Com Discharge Plan Discharge Patient Disposition: Home, Self-Care Discharge Diagnosis: new onset seizure Referrals: [facility] [Primary Care Provider] - 1 Week Discharge Medications: New levetiracetam [Keppra] 500 mg tablet 500 mg PO BID Qty: 60 0RF Discharge Orders: Discharge Order (Routine); Ordered 08/03/22 Ordered By: Jeffry Velasco Diet: Advance to usual diet Activity on Discharge: As tolerated Stand Alone Forms: Patient Portal Discharge page Care Plan Goals: continue Keppra 500 mg twice daily. Health Concerns: avoid alcohol/ marijuana. No driving until seen by Dr. Swift Plan of Treatment: call Dr. Burrows office Thursday to set up an appointment. Assessment: see discharge summary
--- NOTE | 2022-08-03 13:13 | MHC.CM.PN ---
Addendum entered by Hilda Luo 08/03/22 14:50: PT TRANSPORTED VIA LYFT Original Note: PT REPORTS HE LIVES ALONE AND IS INDEPENDENT WITH ALL CARE PT DENIES USE OF SERVICES OR DME PT REPORTS HE GOES TO [facility] FOR PRIMARY CARE AND SEES DR CHRISTIE HE REPORTS HE DID NOT GET THE COVID VAX AND TENDS TO ISOLATE SO DID NOT FEEL IT NECESSARY PT DOES NOT HAVE A HCP, HE DECLINED TO COMPLETE ONE TODAY BUT DID TAKE INFO AND BLANK DOCUMENT TO CONSIDER LATER PT WILL BE DISCHARGED LATER TODAY WITH NO SERVICES PT REPORTS A PREFERENCE TO WALK BUT AGREES TO LET CM ATTEMPT TO ARRANGE A LYFT FIRST
== END 2022-08-03 14:20 | disposition home or self-care (01) | DRG 53 ==
LOC: HO.ED 20:21 → HO.EDOVER 21:08 → HO.S3 08-03 05:30
PROVIDERS: Physician Assistant; Admitting Provider Hospitalist; Emergency Provider Emergency Medicine; Visit Provider Hospitalist
DX: R56.9 Unspecified convulsions (principal); Z20.822 Contact with and (suspected) exposure to COVID-19; Z56.0 Unemployment, unspecified; Z79.899 Other long term (current) drug therapy
CPT/HCPCS: 36415; 70450; 71250; 72125; 74176; 80048; 80053; 80307; 81001; 82077; 82550; 83605; 83735; 85025; 87635; 93005; 99285; J2250; J2405

== ENCOUNTER 2022-11-03 11:17 | Emergency (ER) | payer MEDICAID, SELFPAY ==
[2022-11-03] MEDS: Midazolam HCl/PF 2 MG/2 ML VIAL IVPUSH (11:24)
[2022-11-03 11:25] VITALS: BP 145/89; PULSE 102; RESP 20; O2SAT 96; BMI 23.0
[2022-11-03] MEDS: levETIRAcetam in NaCl (iso-os) 1,000 MG/100 ML PIGGYBACK 400 MG IV (11:28)
[2022-11-03] MEDS: ondansetron HCL 4 MG/2 ML VIAL IVPUSH (11:28)
--- NOTE | 2022-11-03 12:22 | ED_ITS ---
HPI - Seizure General Chief Complaint: Seizure Stated Complaint: Multiple Seizures Time Seen by Provider: 11/03/22 11:23 Source: EMS and old records reviewed History of Present Illness HPI Narrative: 21-year-old male with past medical history of seizure disorder presents to the ED status post seizures. The patient stopped taking his seizure medications and unknown time prior to arrival (per EMS). Had a seizure upon their arrival, but was not given anti epileptic medication secondary to lack time during transport. HPI, review of systems, and physical exam may be limited secondary to the patient's acute illness and altered mental status MD complaint: seizure Description of Episode: loss of consciousness, tonic-clonic movement and post- event confusion Witnessed: Yes - by EMS Trauma: No Seizure History: Yes Place: Home Possible Precipitating Event: medication (Noncompliance) Related Data Previous Rx's Medication Instructions Recorded levetiracetam 500 mg tablet 500 mg PO BID #60 tabs 08/03/22 (Keppra) levetiracetam 500 mg tablet 500 mg PO BID #60 tabs 11/03/22 (Keppra) Allergies Allergy/AdvReac Type Severity Reaction Status Date / Time No Known Allergies Allergy Verified 08/02/22 15:48 Review of Systems Review of Systems: Yes Unobtainable due to mental condition and Unobtainable due to mental status PMFSH Past Medical History Source: nursing notes reviewed Social History Social History Household Members: Family Housing: Unknown / Unable to assess Do you presently have visiting nurse or other home services: No Patient Tobacco Use Status: Never used Tobacco e-Cigarette/Vaping Use: Never Used Substance Use Type: Marijuana Advance Directives: No Advance Directives Information Provided: No service: No Current occupational status: unemployed Physical Exam Vital Signs: Vital Signs: Last Vital Signs Temp 98.5 F 11/03/22 14:07 Pulse 59 11/03/22 14:07 Resp 16 11/03/22 14:07 BP 100/60 11/03/22 14:07 Pulse Ox 97 11/03/22 14:07 O2 Del Method 11/03/22 14:07 BMI result Body Mass Index 23.0 Vital signs noted. Slight tachycardia Const: General: diaphoretic, patient obtunded and other (Postictal) Nutritional Appearance: average body habitus Orientation/consciousness: patient obtunded Limitations: altered mental status HEENT: Head: Yes normal to inspection, Yes normocephalic and Yes atraumatic Ears: external ears normal General nose exam: Normal external nose present Face and sinus: Yes normal facial exam Mouth: Normal oral and palatal mucosa present Eyes: Conjunctivae: conjunctivae normal Sclerae: sclerae normal Pupils: Equal, round and reactive pupils present Neck: Neck: Yes normal visual inspection Resp: Effort & Inspection: normal respiratory effort and no cough Auscultation: clear to auscultation bilaterally Cardio: Rate: tachycardic Rhythm: regular rhythm GI: Inspection: Yes normal to inspection and No Abdominal wall edema Skin: General skin exam: no rashes or lesions noted, no jaundice and no pallor Neuro: Other: Postictal General: patient obtunded Cranial nerves: Yes Equal, round and reactive pupils present Deep tendon reflexes (DTR's): Rt Biceps (C5, C6): 2+, Left biceps reflex intensity grade: 2+, Right patellar reflex intensity grade: 2+ and Left patellar reflex intensity grade: 2+ Medications Administered Discontinued Medications Generic Name Dose Route Start Last Admin Trade Name Freq PRN Reason Stop Dose Admin Levetiracetam 1,000 mg in 100 mls @ 400 mls/hr 11/03/22 11:24 11/03/22 11:45 Keppra IV 11/03/22 11:38 Infused ONCE ONE Infusion Midazolam HCl 2 mg 11/03/22 11:22 11/03/22 11:24 Midazolam Hcl/Pf 2 Mg/2 Ml Vial IVPUSH 11/03/22 11:23 2 mg ONCE ONE Administration Ondansetron HCl 4 mg 11/03/22 11:25 11/03/22 11:28 Ondansetron Hcl 4 Mg/2 Ml Vial IVPUSH 11/03/22 11:26 4 mg ONCE ONE Administration Medical Decision Making Medical Decision Making MDM Narrative: 21-year-old male with past medical history of seizure disorder, not taking his medications appropriately. Patient presented here after having seizure. Received IV Versed and Keppra here in the department, and had no further seizure episodes. He will be discharged home to follow-up with his primary neurologist and or his primary care doctor. Patient also will be given a new prescription for Keppra and instructed not to miss any additional doses. Critical Care Time Critical Care Time Critical Care Time: Yes Total Critical Care Time: 60 Attestation: The patient arrived to the ED with a critical illness necessitating immediate assessment. Cardiopulmonary monitoring was initiated due to the potential for rapid decompensation of the patient's clinical condition. During the course of the patient?s stay, significant time was spent at the bedside performing serial re-evaluations of the patient's hemodynamic and clinical status because of the recognized potential threat to life or limb in this condition. The patient received IV Versed and IV Keppra with cessation of seizure activity. All of the available current laboratory and radiographic studies obtained were reviewed. Ancillary information available including EMS records were reviewed. The case was discussed with the patient. Sequential vital signs were obtained. Critical Care time of 60 minutes was performed exclusive of billable procedures Discharge Plan Discharge Clinical Impression: Seizure Patient Disposition: Home, Self-Care Additional Instructions: It is important that you do not miss any more doses of your medications. Prescriptions: New levetiracetam [Keppra] 500 mg tablet 500 mg PO BID Qty: 60 0RF No Action levetiracetam [Keppra] 500 mg tablet 500 mg PO BID Qty: 60 0RF
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
[2022-11-03 13:35] LABS: MANUAL DIFF FLAG NO
[2022-11-03 13:38] LABS: Basophils Percent Auto 0.1 % (0-2); Eosinophils Percent Auto 0.1 % (0-4); Hematocrit 45.1 % (42.0-52.0); Hemoglobin 15.7 g/dl (14.0-18.0); Imm Gran Abs Auto 0.07 X10*3/uL (0.00-0.03); Imm Gran Pct Auto 0.5 % (0.0-0.4); Lymphocytes Absolute Auto 0.7 X10*3/uL (1.2-4.9); Lymphocytes Percent Auto 5.3 % (20-40); Mean Corpuscular HGB Conc 34.8 g/dl (31.0-36.0); Mean Corpuscular Hemoglobin 30.8 pg (27.0-33.0); Mean Corpuscular Volume 88.4 fL (80.0-98.0); Mean Platelet Volume 9.5 fL (9.4-12.4); Monocytes Absolute Auto 0.6 X10*3/uL (0.1-1.2); Monocytes Percent Auto 4.4 % (2-11); Neutrophils Absolute Auto 12.3 x10*3/uL (2.0-8.3); Neutrophils Percent Auto 89.6 % (45-73); Platelet Count 211 X10*3/uL (160-400); Red Cell Distribution Width 12.1 % (11.0-16.0); White Blood Count 13.8 X10*3/uL (4.8-10.8)
[2022-11-03 13:51] LABS: Anion Gap 14 (12-20); Blood Urea Nitrogen 7 mg/dL (9-16); Calcium 9.7 mg/dL (8.4-10.2); Carbon Dioxide 23 mmol/L (22-29); Chloride 110 mmol/L (96-108); Creatinine Clr Calc Pharmacy 100.2; Estimated Glomerular Filt Rate > 60; Glucose Random 65 mg/dL (60-115); Potassium 3.8 mmol/L (3.3-5.1); Sodium 143 mmol/L (135-145)
[2022-11-03 14:07] VITALS: BP 100/60; PULSE 59; RESP 16; TEMP 36.9; O2SAT 97
== END 2022-11-03 16:47 | disposition home or self-care (01) ==
PROVIDERS: Emergency Provider Emergency Medicine
DX: R56.9 Unspecified convulsions (principal); Z91.14 Patient's other noncompliance with medication regimen
CPT/HCPCS: 36415; 80048; 85025; 96365; 96375; 99284; J1953; J2250; J2405

== ENCOUNTER 2023-01-10 08:32 | Emergency (ER) | payer MEDICAID, SELFPAY ==
--- NOTE | ~2023-01-10 | XR_ITS ---
EXAMINATION: XR SHOULDER, LEFT CLINICAL INFORMATION: Status post reduction COMPARISON: Prior radiographs from 01/10/2023 TECHNIQUE: Three views of the left shoulder. FINDINGS: Significant improvement compared to prior radiographs. The humeral head is now articulating with the glenoid. The scapular Y view shows mild residual posterior humeral subluxation. There appears to be an area of mild flattening of the anterior humeral head, as noted on prior radiographs. There are no displaced bone fragments. The scapula, clavicle and acromioclavicular joint are normal. XR/XR shoulder LT min 2V IMPRESSION: Interval reduction of femoral dislocation. Currently, there is mild posterior humeral subluxation. This represents significant improvement compared to prior radiographs.
--- NOTE | ~2023-01-10 | CT_ITS ---
EXAMINATION: CT SHOULDER WITHOUT CONTRAST, LEFT CLINICAL INFORMATION: Dislocation. Postreduction. COMPARISON: Left shoulder radiographs done earlier the same day. TECHNIQUE: Contiguous axial CT images of the left shoulder were obtained without contrast. Sagittal and coronal reformats were provided and reviewed. This CT examination was performed using dose optimization techniques as appropriate, variously including the following: *Automated exposure control *Adjustment of mA and/or kV according to patient size (this includes techniques or standardized protocols for targeted exams where dose is matched to indication/reason for exam; i.e. extremities or head) *Use of iterative reconstruction technique. DOSE: 333 mGycm. FINDINGS: The humeral head currently appears slightly posteriorly subluxed with interval reduction when compared to the initial radiographs. There is cortical depression at the anterior aspect of the humeral head measuring approximately 1.8 x 2.5 cm (ML by CC), consistent with an impaction fracture. Additional cortical fracture fragments are seen along the posterior aspect of the glenoid measuring up to 1.3 cm in clinical dimension, consistent with a mildly displaced fracture and likely indicating underlying glenoid labral tear. No joint space narrowing or marginal osteophytes. No concerning lytic or blastic osseous lesion. Moderate glenohumeral joint effusion. No soft tissue mass or fluid collection. No axillary lymphadenopathy. The visualized left lung is clear. The rotator cuff tendons are grossly intact however, evaluation significantly limited on CT examination. CT/CT shoulder LT wo IV con IMPRESSION: 1. Cortical depression at the anterior aspect of the humeral head measuring up to 1.8 x 2.5 cm, consistent with an impaction fracture. Mildly displaced cortical fracture fragment along the posterior aspect of the glenoid. Findings are consistent with prior posterior glenoid dislocation. Humeral head currently slightly posteriorly subluxed. 2. Moderate joint effusion. 3. Posterior subluxation humeral head and posterior glenoid fracture fragments likely indicate an underlying posterior labral tear.
--- NOTE | ~2023-01-10 | XR_ITS ---
EXAMINATION: XR SHOULDER, LEFT CLINICAL INFORMATION: Dislocation. COMPARISON: None TECHNIQUE: AP internal rotation, AP external rotation, and scapular Y views of the left shoulder. FINDINGS: Posterior dislocation of the humeral head with an impaction injury along the anterior aspect of the humeral head seen on the scapular Y view. There is associated internal rotation of the humerus related to the dislocation. No concerning lytic or blastic osseous lesion. No abnormal soft tissue calcification. XR/XR shoulder LT min 2V IMPRESSION: Posterior humeral head dislocation with an impaction injury along the anterior aspect of the humeral head.
[2023-01-10 09:03] VITALS: BP 147/89; PULSE 54; RESP 20; TEMP 36.8; O2SAT 100; BMI 32.8
--- NOTE | 2023-01-10 09:09 | ED.EXTPRO ---
HPI - Extremity Problem General Chief complaint: Extremity Injury, Upper Stated complaint: possible dislocated R shoulder Time Seen by Provider: 01/10/23 09:09 Source: patient Mode of arrival: ambulatory Limitations: no limitations History of Present Illness HPI Narrative: Patient is a 22 year old assigned male at with a history of seizures presenting to the emergency department today with left shoulder pain. Patient states that 3 days ago he was sleeping, twisted his left arm, and immediately had pain in his left shoulder. Patient states that he has been more stressed lately and he made of had a seizure but he isn't sure. Patient denies any dizziness, lightheadedness, abdominal pain, nausea, vomiting, fever, chills, blurry vision, double vision, loss of vision, chest pain, difficulty breathing, shortness of breath, back pain, night sweats, pain with urination, increased urinary frequency, increased urinary urgency, blood in his urine or stool, syncope or a near syncopal episode, bowel incontinence, bladder incontinence, bowel retention, bladder retention, or any other complaints at this time. MD Complaint: extremity pain Onset (ago): day(s) (3) Pain Consistency: constant Location: left Severity scale (1-10): 4 Quality: aching Radiation: none Relieving factors: nothing Exacerbating factors: range of motion Associated symptoms: denies other symptoms Related Data Previous Rx's Medication Instructions Recorded levetiracetam 500 mg tablet 500 mg PO BID #60 tabs 08/03/22 (Keppra) levetiracetam 500 mg tablet 500 mg PO BID #60 tabs 11/03/22 (Keppra) Allergies Allergy/AdvReac Type Severity Reaction Status Date / Time No Known Allergies Allergy Verified 08/02/22 15:48 Review of Systems Constitutional: Constitutional: Reports no additional constitutional complaints, Denies chills, Denies fever(s) and Denies night sweats Eyes: Eyes: Reports no additional eye complaints, Denies blurry vision, Denies change in vision, Denies diplopia, Denies eye discharge, Denies loss of vision and Denies eye pain ENT: Denies dizziness Cardiovascular: Cardiovascular: Reports no additional cardiovascular complaints, Denies chest pain, Denies lightheadedness, Denies Loss of Consciousness and Denies dyspnea Respiratory: Respiratory: Reports no additional respiratory complaints and Denies dyspnea Gastrointestinal: Gastrointestinal: Reports no additional gastrointestinal complaints, Denies abdominal pain, Denies melena, Denies hematochezia, Denies change in bowel habits and Denies change in stool character Genitourinary: Genitourinary: Reports no additional male genitourinary complaints, Denies hematuria, Denies oliguria, Denies difficulty urinating, Denies dysuria, Denies urinary frequency, Denies urinary hesitancy, Denies urinary incontinence and Denies urinary urgency Musculoskeletal: Musculoskeletal: Reports no additional musculoskeletal complaints, Denies numbness and Denies tingling Comments: left shoulder pain Neurologic: Denies dizziness, Denies loss of vision, Denies numbness and Denies tingling Psychiatric: Psychiatric: Reports no additional psychiatric complaints Endocrine: Endocrine: Reports no additional endocrine complaints Hematologic/Lymphatic: Hematologic/Lymphatic: Reports no additional hematologic/lymphatic complaints Allergic/Immunologic: Allergic/Immunologic: Reports no additional allergic/immunologic complaints PMFSH Past Medical History Attestation statement: The following information was validated with the patient. Source: old records reviewed and nursing notes reviewed Social History Social History Household Members: Family Housing: Unknown / Unable to assess Do you presently have visiting nurse or other home services: No Patient Tobacco Use Status: Never used Tobacco e-Cigarette/Vaping Use: Never Used Substance Use Type: Marijuana Advance Directives: No Advance Directives Information Provided: No service: No Current occupational status: unemployed Physical Exam Vital Signs: Vital Signs: Last Vital Signs Temp 98.5 F 01/10/23 15:55 Pulse 65 01/10/23 17:13 Resp 16 01/10/23 15:55 BP 125/73 01/10/23 17:13 Pulse Ox 99 01/10/23 17:13 O2 Del Method 01/10/23 17:13 BMI result Body Mass Index 32.8 Const: General: cooperative, no acute distress, alert and awake Nutritional Appearance: well nourished Orientation/consciousness: patient oriented x3 Limitations: no limitations HEENT: Head: Yes normal to inspection and Yes atraumatic Ears: hearing grossly normal bilaterally and external ears normal General nose exam: Normal external nose present, no nasal discharge noted and no epistaxis Face and sinus: Yes normal facial exam, No abrasion and No laceration Mouth: Normal oral and palatal mucosa present, no drooling and no muffled voice Eyes: General: appearance normal, both eyes and all related structures Periorbital: periorbital findings normal Eyelids: Yes eyelids normal Conjunctivae: conjunctivae normal Pupils: Equal, round and reactive pupils present EOM: EOMs intact bilaterally Neck: Neck: Yes normal visual inspection, Yes full ROM and Yes no lymphadenopathy Chest: Chest palpation & inspection: normal inspection of the chest Resp: Effort & Inspection: normal respiratory effort and able to speak in complete sentences GI: Inspection: Yes normal to inspection Neuro: General: patient oriented x3 and moves all extremities Cranial nerves: Yes Equal, round and reactive pupils present Cognition (Neuro): normal cognition Motor exam (neuro): 5/5 motor strength present throughout Sensory Exam: Normal double simultaneous stimulation for sensation Coordination: [id number] test normal Extrem: Other: patient's left shoulder is obviously dislocated posterior and has limited ROM secondary to pain and dislocation, pulse motor and sensation are intact to the distal left upper extremity General: Yes capillary refill normal Psych: Appearance: grossly normal Mental Status: mental status grossly normal Affect: normal affect Attitude: cooperative Thought process: Normal thought process present Thought content: Normal thought content present Insight: Good insight present (Psych) Medications Administered Discontinued Medications Generic Name Dose Route Start Last Admin Trade Name Freq PRN Reason Stop Dose Admin Bupivacaine HCl 10 ml 01/10/23 09:29 01/10/23 10:12 Bupivacaine 0.5% 50 Ml Vial INFILTRATI 01/10/23 09:30 10 ml ONCE ONE Administration Lidocaine HCl 5 ml 01/10/23 09:29 01/10/23 10:13 Lidocaine Hcl 2 % Mpf 5 Ml Vial INFILTRATI 01/10/23 09:30 5 ml ONCE ONE Administration Lorazepam 2 mg 01/10/23 09:32 01/10/23 10:02 Lorazepam 2 Mg/Ml Vial IVPUSH 01/10/23 09:33 2 mg ONCE ONE Administration Medical Decision Making Medical Decision Making MDM Narrative: Patient is a 22 year old assigned male at with a history of seizures presenting to the emergency department today with left shoulder pain. Patient's physical exam showed a posterior dislocation with good distal pulses, sensation, and motor. Patient's blood work was unremarkable. Patient's initial left shoulder x-ray showed a posterior dislocation. Patient's left shoulder was reduced after injection of a hematoma block with lidocaine and bupivicain, without incident. Patient's repeat shoulder x-ray showed a mostly reduced dislocated shoulder. Patient's shoulder CT showed a cortical depression consistent with an impaction fracture as well as a likely underlying posterior labral tear. I spoke to the orthopedic provider conference and event organiser who recommended the patient be kept in a sling and follow up with their office next week. I explained my physical exam findings as well as all test results to the patient. I answered all questions asked by the patient. I stressed the importance of the patient taking his medication as prescribed. I stressed the importance of the patient following up with his primary care provider, his neurologist, and an orthopedic provider. I stressed the importance of the patient returning to the emergency department immediately if his symptoms were to worsen or if he were to develop any dizziness, shortness of breath, difficulty breathing, chest pain, blurry vision, loss of vision, nausea, vomiting, abdominal pain, fever, chills, back pain, or any other complaints. Patient verbalized agreement and understanding with this treatment plan and discharge. Differential Diagnosis Differential Diagnoses: The differential diagnosis associated with the presentation includes left humerus fracture, dislocated shoulder Consult Healthcare Provider Management of the patient was discussed with: Pricing Consultant (spoke to the orthopedic provider who recommended continued sling use and follow up with their office outpatient) Lab Data MDM Lab Attestation statement: I reviewed the patient's lab results. 01/10/23 09:52 01/10/23 11:18 Labs: Lab Results 01/10/23 01/10/23 Range/Units 09:52 11:18 WBC 11.8 H (4.8-10.8) X10*3/uL RBC 5.27 (4.60-5.80) X10*6/uL Hgb 16.0 (14.0-18.0) g/dl Hct 45.4 (42.0-52.0) % MCV 86.1 (80.0-98.0) fL MCH 30.4 (27.0-33.0) pg MCHC 35.2 (31.0-36.0) g/dl RDW 11.9 (11.0-16.0) % Plt Count 250 (160-400) X10*3/uL MPV 9.2 L (9.4-12.4) fL Immature Gran % (Auto) 0.3 (0.0-0.4) % Neut % (Auto) 83.1 H (45-73) % Lymph % (Auto) 12.3 L (20-40) % [place] % (Auto) 4.1 (2-11) % Eos % (Auto) 0.1 (0-4) % Baso % (Auto) 0.1 (0-2) % Lymph # (Auto) 1.5 (1.2-4.9) X10*3/uL [place] # (Auto) 0.5 (0.1-1.2) X10*3/uL Eos # (Auto) 0.0 (0.0-0.4) X10*3/uL Baso # (Auto) 0.0 (0.0-0.2) X10*3/uL Abs Immat Gran (auto) 0.03 (0.00-0.03) X10*3/uL Absolute Neuts (auto) 9.8 H (2.0-8.3) x10*3/uL Absolute Nucleated RBC 0.000 (0.0-0.012) X10*3/uL Nucleated RBC % (auto) 0.0 (0.0-0.2) /100WBC Sodium 138 (135-145) mmol/L Potassium 3.7 (3.3-5.1) mmol/L Chloride 102 (96-108) mmol/L Carbon Dioxide 25 (22-29) mmol/L Anion Gap 15 (12-20) BUN 8 L (9-16) mg/dL Creatinine 1.03 (0.5-1.4) mg/dL Estim Creat Clear Calc 138.5 Estimated GFR > 60 Random Glucose 84 (60-115) mg/dL Calcium 9.8 (8.4-10.2) mg/dL Total Bilirubin 0.9 (0.0-1.0) mg/dL AST 20 (5-37) U/L ALT 11 (0-40) U/L Alkaline Phosphatase 61 (39-117) U/L Total Protein 7.3 (6.5-8.0) g/dL Albumin 4.5 (3.5-5.0) g/dL Radiology Impression Discussion of test interpretation with radiology: I have reviewed the radiologist's reading. Radiologist Impression: My interpretation is in agreement with the radiologist's impression of these imaging studies. EXAMINATION: XR SHOULDER, LEFT CLINICAL INFORMATION: Dislocation.? COMPARISON: None? TECHNIQUE: AP internal rotation, AP external rotation, and scapular Y views of the left shoulder. FINDINGS: Posterior dislocation of the humeral head with an impaction injury along the anterior aspect of the humeral head seen on the scapular Y view. There is associated internal rotation of the humerus related to the dislocation. No concerning lytic or blastic osseous lesion. No abnormal soft tissue calcification.? XR/XR shoulder LT min 2V IMPRESSION: Posterior humeral head dislocation with an impaction injury along the anterior aspect of the humeral head. Dictated By: Sebas Khan MD Signed By: Electronically signed by Sebas Khan MD 01/10/23 0934 EXAMINATION: XR SHOULDER, LEFT CLINICAL INFORMATION: Status post reduction? COMPARISON: Prior radiographs from 01/10/2023? TECHNIQUE: Three views of the left shoulder. FINDINGS: Significant improvement compared to prior radiographs. The humeral head is now articulating with the glenoid. The scapular Y view shows mild residual posterior humeral subluxation. There appears to be an area of mild flattening of the anterior humeral head, as noted on prior radiographs. There are no displaced bone fragments. The scapula, clavicle and acromioclavicular joint are normal. XR/XR shoulder LT min 2V IMPRESSION: Interval reduction of femoral dislocation. Currently, there is mild posterior humeral subluxation. This represents significant improvement compared to prior radiographs. Dictated By: Jordi Hickman MD Signed By: Electronically signed by Jordi Hickman MD 01/10/23 1042 EXAMINATION: CT SHOULDER WITHOUT CONTRAST, LEFT CLINICAL INFORMATION: Dislocation. Postreduction.? COMPARISON: Left shoulder radiographs done earlier the same day.? TECHNIQUE: Contiguous axial CT images of the left shoulder were obtained without contrast. Sagittal and coronal reformats were provided and reviewed. This CT examination was performed using dose optimization techniques as appropriate, variously including the following: *Automated exposure control *Adjustment of mA and/or kV according to patient size (this includes techniques or standardized protocols for targeted exams where dose is matched to indication/reason for exam; i.e. extremities or head) *Use of iterative reconstruction technique. DOSE: 333 mGycm.? FINDINGS: The humeral head currently appears slightly posteriorly subluxed with interval reduction when compared to the initial radiographs. There is cortical depression at the anterior aspect of the humeral head measuring approximately 1.8 x 2.5 cm (ML by CC), consistent with an impaction fracture. Additional cortical fracture fragments are seen along the posterior aspect of the glenoid measuring up to 1.3 cm in clinical dimension, consistent with a mildly displaced fracture and likely indicating underlying glenoid labral tear. No joint space narrowing or marginal osteophytes. No concerning lytic or blastic osseous lesion. Moderate glenohumeral joint effusion. No soft tissue mass or fluid collection. No axillary lymphadenopathy. The visualized left lung is clear. The rotator cuff tendons are grossly intact however, evaluation significantly limited on CT examination.? CT/CT shoulder LT wo IV con IMPRESSION: 1.? Cortical depression at the anterior aspect of the humeral head measuring up to 1.8 x 2.5 cm, consistent with an impaction fracture. Mildly displaced cortical fracture fragment along the posterior aspect of the glenoid. Findings are consistent with prior posterior glenoid dislocation. Humeral head currently slightly posteriorly subluxed. 2.? Moderate joint effusion. 3.? Posterior subluxation humeral head and posterior glenoid fracture fragments likely indicate an underlying posterior labral tear. Dictated By: Sebas Khan MD Signed By: Electronically signed by Sebas Khan MD 01/10/23 1216 Procedures Joint Aspiration/Injection Joint Asp./Inject. 1: Time Out Performed: Yes Side of body: left Joint Aspirated: shoulder Ultrasound Guidance: No Local Anesthetic: lidocaine 2% and bupivacaine 0.5% Amount of anesthesia used (mL): 10 Needle Size Used: 20G Patient Tolerated Procedure: well Complications: none Orthopedic Joint Reduction Joint #1: Time Out Performed: Yes Side: left Joint Reduction Location: shoulder Analgesia: hematoma block Local Anesthesia: lidocaine 2% and bupivacaine 0.5% Amount of anesthesic used (mL): 10 Shoulder Technique Used (if applicable): traction/counter-traction Technique used: direct manipulation Post-reduction neuro exam: intact Post-reduction vascular: intact Post Reduction X-Ray Obtained: Yes Post Reduction X-Ray Results: reduced Splint Applied: Yes Patient Tolerated Procedure: well Orthopedic Splinting/Casting Injury #1: Side: left Upper Extremity Injury Location: shoulder Upper Extremity Immobilizer: sling/shoulder immobilizer Critical Care Time Critical Care Time Critical Care Time: Yes Total Critical Care Time: 45 Attestation: I spent 45 minutes of Critical Care Time with this patient. This does not include time spent on separately reported billable procedures. Discharge Plan Discharge Clinical Impression: Closed dislocation of humerus, Fracture, humerus Patient Disposition: Home, Self-Care Instructions: Arm Fracture in Adults (ED), Shoulder Dislocation (ED), Shoulder Immobilizer (ED) Additional Instructions: Follow up with your primary care provider and an orthopedic provider. Keep wearing your sling. Return to the emergency department immediately if your symptoms worsen or if you develop any dizziness, shortness of breath, difficulty breathing, chest pain, blurry vision, loss of vision, nausea, vomiting, abdominal pain, fever, chills, back pain, or any other complaints. Prescriptions: No Action levetiracetam [Keppra] 500 mg tablet 500 mg PO BID Qty: 60 0RF levetiracetam [Keppra] 500 mg tablet 500 mg PO BID Qty: 60 0RF Referrals: [facility] – [place] [facility] [Provider Group] (Call to establish and follow up with an orthopedic provider. ) [place] [Primary Care Provider] - Interventions: ED Discharge Assessment Last Done: 01/10/23 18:25 Discharge Date/Time: 01/10/23 18:26 Print Language: Hebrew
[2023-01-10 09:58] LABS: Basophils Percent Auto 0.1 % (0-2); Eosinophils Percent Auto 0.1 % (0-4); Hematocrit 45.4 % (42.0-52.0); Imm Gran Abs Auto 0.03 X10*3/uL (0.00-0.03); Imm Gran Pct Auto 0.3 % (0.0-0.4); Lymphocytes Absolute Auto 1.5 X10*3/uL (1.2-4.9); Lymphocytes Percent Auto 12.3 % (20-40); MANUAL DIFF FLAG NO; Mean Corpuscular HGB Conc 35.2 g/dl (31.0-36.0); Mean Corpuscular Hemoglobin 30.4 pg (27.0-33.0); Mean Corpuscular Volume 86.1 fL (80.0-98.0); Mean Platelet Volume 9.2 fL (9.4-12.4); Monocytes Absolute Auto 0.5 X10*3/uL (0.1-1.2); Monocytes Percent Auto 4.1 % (2-11); Neutrophils Absolute Auto 9.8 x10*3/uL (2.0-8.3); Neutrophils Percent Auto 83.1 % (45-73); Platelet Count 250 X10*3/uL (160-400); Red Blood Count 5.27 X10*6/uL (4.60-5.80); Red Cell Distribution Width 11.9 % (11.0-16.0); White Blood Count 11.8 X10*3/uL (4.8-10.8)
[2023-01-10] MEDS: LORazepam 2 MG/ML VIAL IVPUSH (10:02)
[2023-01-10] MEDS: Lidocaine HCl 2 % MPF 5 ML VIAL INFILTRATI (10:13)
[2023-01-10 11:00] VITALS: BP 131/86; PULSE 58; RESP 17; TEMP 36.6; O2SAT 98
[2023-01-10 11:42] LABS: Alanine Aminotransferase 11 U/L (0-40); Albumin Level 4.5 g/dL (3.5-5.0); Alkaline Phosphatase 61 U/L (39-117); Anion Gap 15 (12-20); Aspartate Amino Transferase 20 U/L (5-37); Bilirubin Total 0.9 mg/dL (0.0-1.0); Blood Urea Nitrogen 8 mg/dL (9-16); Calcium 9.8 mg/dL (8.4-10.2); Carbon Dioxide 25 mmol/L (22-29); Chloride 102 mmol/L (96-108); Creatinine Clr Calc Pharmacy 138.5; Estimated Glomerular Filt Rate > 60; Glucose Random 84 mg/dL (60-115); Potassium 3.7 mmol/L (3.3-5.1); Sodium 138 mmol/L (135-145); Total Protein 7.3 g/dL (6.5-8.0)
[2023-01-10 14:00] VITALS: BP 144/79; PULSE 58; RESP 15; TEMP 36.6; O2SAT 98
[2023-01-10 15:55] VITALS: BP 116/88; PULSE 84; RESP 16; TEMP 36.9; O2SAT 99
[2023-01-10 17:13] VITALS: BP 125/73; PULSE 65; O2SAT 99
[2023-01-14 10:33] LABS: Levetiracetam Keppra 9.3 mcg/mL (6.0-46.0)
== END 2023-01-10 18:26 | disposition home or self-care (01) ==
PROVIDERS: Physician Assistant Medical; Emergency Provider Student in an Organized Health Care Education/Training Program
DX: S42.302A Unspecified fracture of shaft of humerus, left arm, initial encounter for closed fracture (principal); X50.1XXA Overexertion from prolonged static or awkward postures, initial encounter; M25.412 Effusion, left shoulder; F12.90 Cannabis use, unspecified, uncomplicated; Y93.84 Activity, sleeping; Y92.032 Bedroom in apartment as the place of occurrence of the external cause; Y99.9 Unspecified external cause status
CPT/HCPCS: 20611; 24505; 36415; 73030; 73200; 80053; 80177; 85025; 96374; 99284; 99285; J2060

== ENCOUNTER 2023-05-13 02:58 | Emergency (ER) | payer MEDICAID, SELFPAY ==
[2023-05-13] VITALS (20 sets, daily range): BP systolic 105–137; BP diastolic 64–93; PULSE 47–112; RESP 16–26; TEMP 36.4–36.7; O2SAT 97–100; BMI 17.4
--- NOTE | ~2023-05-13 | XR_ITS ---
EXAMINATION: XR SHOULDER, RIGHT CLINICAL INFORMATION: Post reduction COMPARISON: Earlier same date TECHNIQUE: One view of the right shoulder. XR/XR shoulder RT 1V FINDINGS/IMPRESSION: Successful reduction of the anterior glenohumeral dislocation. Comminuted greater tuberosity avulsion fracture fragments appear less displaced, although assessment is limited on this single view.
--- NOTE | ~2023-05-13 | XR_ITS ---
EXAMINATION: XR SHOULDER, RIGHT CLINICAL INFORMATION: Right shoulder pain and deformity. COMPARISON: None available. TECHNIQUE: Three views of the right shoulder. FINDINGS: Anterior dislocation of the humeral head with respect to the glenoid with accompanying displaced comminuted avulsion fractures of the greater tuberosity. Clavicle and acromioclavicular joint intact. XR/XR shoulder RT min 2V IMPRESSION: Anterior dislocation of the humeral head with accompanying comminuted avulsion fractures of the greater tuberosity.
[2023-05-13] MEDS: ondansetron HCL 4 MG/2 ML VIAL IVPUSH (03:37)
[2023-05-13] MEDS: Morphine Sulfate 4 MG/ML CARTRIDGE IVPUSH (03:39)
[2023-05-13] MEDS: propofoL 200 MG/20 ML VIAL 100 MG IVPUSH (03:55)
--- NOTE | 2023-05-13 03:55 | PC.NURSE ---
100 mg propofol administered at this time. Per Dr. Peterson.
--- NOTE | 2023-05-13 04:01 | ED_ITS ---
HPI - Seizure General Chief Complaint: Seizure Stated Complaint: seizure Time Seen by Provider: 05/13/23 03:10 Source: patient Mode of arrival: EMS Limitations: no limitations History of Present Illness HPI Narrative: Patient history of seizures on Keppra 500 mg twice daily fairly compliant last seizure was about a year ago today patient was sleeping at a neighbor's house had a seizure while asleep and fell off the couch noted to have deformity the right shoulder suggestive of dislocation no other significant injuries no tongue bite duration of seizure was not clear likely for few minutes Seizure History: Yes Related Data Previous Rx's Medication Instructions Recorded levetiracetam 500 mg tablet 500 mg PO BID #60 tabs 08/03/22 (Keppra) levetiracetam 500 mg tablet 500 mg PO BID #60 tabs 11/03/22 (Keppra) Allergies Allergy/AdvReac Type Severity Reaction Status Date / Time No Known Allergies Allergy Verified 05/13/23 03:03 Review of Systems Review of Systems: Yes all other systems are reviewed and are negative [facility] Social History Social History Household Members: Family Housing: Unknown / Unable to assess Do you presently have visiting nurse or other home services: No Patient Tobacco Use Status: Never used Tobacco e-Cigarette/Vaping Use: Never Used Substance Use Type: Marijuana service: No Current occupational status: unemployed Physical Exam Vital Signs: Vital Signs: Last Vital Signs Temp 97.6 F 05/13/23 03:03 Pulse 112 H 05/13/23 05:54 Resp 26 H 05/13/23 05:54 BP 136/91 H 05/13/23 05:54 Pulse Ox 99 05/13/23 05:54 O2 Del Method Room Air 05/13/23 05:54 Oxygen Flow Rate 2 05/13/23 03:55 BMI result Body Mass Index 17.4 Appearance: Alert. Oriented X3. Moderate distress. Eyes: PERRLA, No Nystagmus ENT: Pharynx normal. Oral Mucosa moist no tongue bite Neck: Normal inspection. Neck supple. CVS: Normal heart rate and rhythm. Pulses normal. Respiratory: No respiratory distress. Equal air entry bilateral, no wheezing/rales/rhonchi Abdomen: Soft and nontender. Bowel sounds are present, no mass palpable, no CVA tenderness Skin: Skin warm and dry. Normal skin color. Normal skin turgor. Extremities: No lower extremity edema. No calf tenderness right shoulder tender with squared off deformity neurovascular intact Neuro: Oriented X 3. No motor deficit. No sensory deficit.No cerebellar signs , cranial nerves II-XII intact Medications Administered Discontinued Medications Generic Name Dose Route Start Last Admin Trade Name Freq PRN Reason Stop Dose Admin Sodium Chloride 1,000 mls @ 999 mls/hr 05/13/23 04:17 05/13/23 05:03 Ns IV 05/13/23 05:17 Infused .Q1H1M ONE Infusion Levetiracetam 1,000 mg in 100 mls @ 400 mls/hr 05/13/23 05:30 05/13/23 05:57 Keppra IV 05/13/23 05:44 Infused ONCE ONE Infusion Lorazepam 2 mg 05/13/23 05:30 05/13/23 05:29 Lorazepam 2 Mg/Ml Vial IVPUSH 05/13/23 05:31 2 mg ONCE ONE Administration Morphine Sulfate 4 mg 05/13/23 03:27 05/13/23 03:39 Morphine Sulfate 4 Mg/Ml Cartridge IVPUSH 05/13/23 03:28 4 mg ONCE ONE Administration Protocol Ondansetron HCl 4 mg 05/13/23 03:27 05/13/23 03:37 Ondansetron Hcl 4 Mg/2 Ml Vial IVPUSH 05/13/23 03:28 4 mg ONCE ONE Administration Propofol 100 mg 05/13/23 04:18 05/13/23 03:55 Propofol 200 Mg/20 Ml Vial IVPUSH 05/13/23 04:19 100 mg ONCE ONE Administration Medical Decision Making Medical Decision Making [facility] Narrative: 0525 patient had witnessed generalized tonic-clonic seizure lasted for 3 4 minutes was given Ativan 2 mg and will also give 1000 mg of Keppra Lab Data 05/13/23 05:46 05/13/23 05:46 Labs: Lab Results 05/13/23 Range/Units 05:46 WBC 13.5 H (4.8-10.8) X10*3/uL RBC 4.69 (4.60-5.80) X10*6/uL Hgb 14.5 (14.0-18.0) g/dl Hct 44.4 (42.0-52.0) % MCV 94.7 (80.0-98.0) fL MCH 30.9 (27.0-33.0) pg MCHC 32.7 (31.0-36.0) g/dl RDW 12.3 (11.0-16.0) % Plt Count 204 (160-400) X10*3/uL MPV 9.8 (9.4-12.4) fL Immature Gran % (Auto) 0.4 (0.0-0.4) % Neut % (Auto) 68.3 (45-73) % Lymph % (Auto) 23.4 (20-40) % Jewell % (Auto) 6.1 (2-11) % Eos % (Auto) 1.5 (0-4) % Baso % (Auto) 0.3 (0-2) % Lymph # (Auto) 3.2 (1.2-4.9) X10*3/uL Jewell # (Auto) 0.8 (0.1-1.2) X10*3/uL Eos # (Auto) 0.2 (0.0-0.4) X10*3/uL Baso # (Auto) 0.0 (0.0-0.2) X10*3/uL Abs Immat Gran (auto) 0.05 H (0.00-0.03) X10*3/uL Absolute Neuts (auto) 9.3 H (2.0-8.3) x10*3/uL Absolute Nucleated RBC 0.000 (0.0-0.012) X10*3/uL Nucleated RBC % (auto) 0.0 (0.0-0.2) /100WBC Radiology Impression Discussion of test interpretation with radiology: I have reviewed the radiologist's reading. Radiologist Impression: XR/XR shoulder RT min 2V IMPRESSION: Anterior dislocation of the humeral head with accompanying comminuted avulsion fractures of the greater tuberosity. ? Procedures Orthopedic Joint Reduction Joint #1: Time Out Performed: Yes Side: right Joint Reduction Location: shoulder Analgesia: procedural sedation Shoulder Technique Used (if applicable): external rotation Post-reduction neuro exam: intact Post-reduction vascular: intact Post Reduction X-Ray Obtained: Yes Post Reduction X-Ray Results: reduced Splint Applied: Yes Patient Tolerated Procedure: well Procedural Sedation Indication: fracture/dislocation reduction ASA Class: I Mallampati Class: I Preparation: commercial construction project manager applied, pulse oximeter, capnometry used, suppl emental O2 applied, suction/airway equipment at bedside and IV secured IV Propofol dose (mg): 100 Patient Tolerated Procedure: well Complications: none Discharge Plan Discharge Clinical Impression: Epileptic seizure, Fracture dislocation of right shoulder joint Prescriptions: No Action levetiracetam [Keppra] 500 mg tablet 500 mg PO BID Qty: 60 0RF levetiracetam [Keppra] 500 mg tablet 500 mg PO BID Qty: 60 0RF
[2023-05-13] MEDS: 0.9 % Sodium Chloride 1,000 ML 999 ML IV (04:10)
[2023-05-13] MEDS: LORazepam 2 MG/ML VIAL IVPUSH (05:29)
--- NOTE | 2023-05-13 05:29 | PC.NURSE ---
Pt with witnessed seizure activity per ED staff. Pt given 2mg Ativan IVP per Dr. Almazan verbal order.
[2023-05-13] MEDS: levETIRAcetam in NaCl (iso-os) 1,000 MG/100 ML PIGGYBACK 400 MG IV (05:36)
[2023-05-13 05:51] LABS: MANUAL DIFF FLAG NO
[2023-05-13 05:52] LABS: Basophils Percent Auto 0.3 % (0-2); Eosinophils Absolute Auto 0.2 X10*3/uL (0.0-0.4); Eosinophils Percent Auto 1.5 % (0-4); Hematocrit 44.4 % (42.0-52.0); Hemoglobin 14.5 g/dl (14.0-18.0); Imm Gran Abs Auto 0.05 X10*3/uL (0.00-0.03); Imm Gran Pct Auto 0.4 % (0.0-0.4); Lymphocytes Absolute Auto 3.2 X10*3/uL (1.2-4.9); Lymphocytes Percent Auto 23.4 % (20-40); Mean Corpuscular HGB Conc 32.7 g/dl (31.0-36.0); Mean Corpuscular Hemoglobin 30.9 pg (27.0-33.0); Mean Corpuscular Volume 94.7 fL (80.0-98.0); Mean Platelet Volume 9.8 fL (9.4-12.4); Monocytes Absolute Auto 0.8 X10*3/uL (0.1-1.2); Monocytes Percent Auto 6.1 % (2-11); Neutrophils Absolute Auto 9.3 x10*3/uL (2.0-8.3); Neutrophils Percent Auto 68.3 % (45-73); Platelet Count 204 X10*3/uL (160-400); Red Blood Count 4.69 X10*6/uL (4.60-5.80); Red Cell Distribution Width 12.3 % (11.0-16.0); White Blood Count 13.5 X10*3/uL (4.8-10.8)
--- NOTE | 2023-05-13 05:53 | PC.NURSE ---
Pt postictal. Keppra infusing at this time.
--- NOTE | 2023-05-13 06:03 | PC.NURSE ---
Pt very agitated with staff and trying to get out of bed. Pts need to urinate identified and multiple attempts to place urinal unsuccessful d/t pt agitation. Security to bedside to assist.
[2023-05-13 06:07] LABS: Alanine Aminotransferase 18 U/L (0-40); Albumin Level 4.1 g/dL (3.5-5.0); Alkaline Phosphatase 57 U/L (39-117); Anion Gap 23 (12-20); Aspartate Amino Transferase 25 U/L (5-37); Bilirubin Total 0.3 mg/dL (0.0-1.0); Blood Urea Nitrogen 10 mg/dL (9-16); Calcium 8.9 mg/dL (8.4-10.2); Carbon Dioxide 12 mmol/L (22-29); Chloride 112 mmol/L (96-108); Creatinine Clr Calc Pharmacy 82.2; Estimated Glomerular Filt Rate > 60; Glucose Random 127 mg/dL (60-115); Magnesium 2.4 mg/dL (1.6-2.6); Potassium 4.1 mmol/L (3.3-5.1); Sodium 143 mmol/L (135-145); Total Protein 6.9 g/dL (6.5-8.0)
[2023-05-13 06:09] LABS: Ethanol < 10 mg/dL
--- NOTE | 2023-05-13 06:10 | PC.NURSE ---
Pt able to urinate in urinal at this time. Pt went directly back to sleep after doing so. VSS.
--- NOTE | 2023-05-13 06:30 | PC.NURSE ---
Pt intermittently restless in bed. Redirectable.
--- NOTE | 2023-05-13 06:49 | PC.NURSE ---
Attempted to reach sister by phone number listed on chart. No answer at this time.
--- NOTE | 2023-05-13 06:55 | PC.NURSE ---
Report to Harper PHAN for continued care.
--- NOTE | 2023-05-13 07:21 | PC.NURSE ---
pt appears to be resting in bed at this time, vss. nsr on the monitor
--- NOTE | 2023-05-13 10:21 | PC.NURSE ---
pt drank water with this rn at bedside, wakes for periods and falls back to sleep. pt stating that he has no one he can call to pick him up to bring him home then promptly falls back to sleep. vss
== END 2023-05-13 13:37 | disposition home or self-care (01) ==
PROVIDERS: Emergency Provider Internal Medicine
DX: G40.909 Epilepsy, unspecified, not intractable, without status epilepticus (principal); S43.004A Unspecified dislocation of right shoulder joint, initial encounter; T14.8XXA Other injury of unspecified body region, initial encounter; X58.XXXA Exposure to other specified factors, initial encounter; Y93.9 Activity, unspecified; Y92.9 Unspecified place or not applicable; Y99.9 Unspecified external cause status; Z79.899 Other long term (current) drug therapy
CPT/HCPCS: 36415; 73020; 73030; 80053; 80307; 83735; 85025; 96361; 96365; 96375; 99284; 99285; J1953; J2060; J2270; J2405

== ENCOUNTER 2023-05-14 00:38 | Emergency (ER) | payer MEDICAID, SELFPAY ==
[2023-05-14] VITALS (8 sets, daily range): BP systolic 130–145; BP diastolic 81–97; PULSE 45–53; RESP 16–18; TEMP 36.9–37.2; O2SAT 96–100; BMI 23.0
--- NOTE | ~2023-05-14 | XR_ITS ---
EXAMINATION: XR SHOULDER, RIGHT CLINICAL INFORMATION: Post reduction COMPARISON: Earlier same date TECHNIQUE: One view of the right shoulder. XR/XR shoulder RT 1V FINDINGS/IMPRESSION: Successful reduction of the anterior glenohumeral dislocation. Comminuted greater tuberosity avulsion fracture fragments appear less displaced, although assessment is limited on this single view. There is also an osseous Bankart fracture now evident, displaced at least 1.3 cm from the anteroinferior glenoid.
--- NOTE | ~2023-05-14 | XR_ITS ---
EXAMINATION: XR SHOULDER, RIGHT CLINICAL INFORMATION: Dislocated COMPARISON: Previous day TECHNIQUE: Two views of the right shoulder. XR/XR shoulder RT min 2V FINDINGS/IMPRESSION: Recurrent anterior glenohumeral dislocation with comminuted avulsion fractures of the greater tuberosity as seen previously. AC joint intact.
--- NOTE | 2023-05-14 00:57 | PC.NURSE ---
Pt ca&ox3, no signs of distress. Denies chest pain and sob. Reports 8/10 shoulder pain. Pt requested and given something to drink. Will continue to monitor.
--- NOTE | 2023-05-14 01:49 | PC.NURSE ---
Pt req'd and given pillow for shoulder. HOB lowered for comfort. wctm.
[2023-05-14] MEDS: ondansetron HCL 4 MG/2 ML VIAL IVPUSH (02:08)
[2023-05-14] MEDS: Morphine Sulfate 4 MG/ML CARTRIDGE IVPUSH (02:08)
--- NOTE | 2023-05-14 02:13 | PC.NURSE ---
Pt medicated per mar.
--- NOTE | 2023-05-14 02:13 | PC.NURSE ---
Provider in with pt.
--- NOTE | 2023-05-14 02:29 | ED_ITS ---
HPI - Extremity Problem General Chief complaint: Extremity Problem Stated complaint: shoulder pain Time Seen by Provider: 05/14/23 00:43 Source: patient and EMS Mode of arrival: EMS Limitations: no limitations History of Present Illness HPI Narrative: Patient with history of seizures shoulder dislocation was seen here for shoulder dislocation after seizure patient took his sling of went to bed there is a bed up under the pillow and dislocated the right shoulder again Related Data Previous Rx's Medication Instructions Recorded levetiracetam 500 mg tablet 500 mg PO BID #60 tabs 08/03/22 (Keppra) levetiracetam 500 mg tablet 500 mg PO BID #60 tabs 11/03/22 (Keppra) ibuprofen 600 mg tablet 600 mg PO Q6H PRN fever or pain 05/13/23 #30 tabs levetiracetam 500 mg tablet 500 mg PO BID #180 tabs 05/13/23 (Keppra) Allergies Allergy/AdvReac Type Severity Reaction Status Date / Time No Known Allergies Allergy Verified 05/13/23 03:03 Review of Systems Review of Systems: Yes all other systems are reviewed and are negative [facility] Social History Social History Household Members: Family Housing: Unknown / Unable to assess Do you presently have visiting nurse or other home services: No Patient Tobacco Use Status: Never used Tobacco Smoked in Last 30 Days: No e-Cigarette/Vaping Use: Never Used Use of substances other than those prescribed or required for medical reasons: No Substance Use Type: Marijuana Advance Directives: No Advance Directives Information Provided: Yes service: No Current occupational status: unemployed Physical Exam Vital Signs: Vital Signs: Last Vital Signs Temp 98.9 F 05/14/23 06:00 Pulse 50 05/14/23 06:00 Resp 16 05/14/23 06:00 BP 132/81 05/14/23 06:02 Pulse Ox 96 05/14/23 06:00 O2 Del Method Room Air 05/14/23 06:00 O2 Flow Rate 2 05/14/23 03:19 BMI result Body Mass Index 23.0 Appearance: Alert. Oriented X3. No acute distress. Eyes: PERRLA, No Nystagmus ENT: Pharynx normal. Oral Mucosa moist Neck: Normal inspection. Neck supple. CVS: Normal heart rate and rhythm. Pulses normal. Respiratory: No respiratory distress. Equal air entry bilateral, Abdomen: Soft and nontender. Bowel sounds are present, Skin: Skin warm and dry. Normal skin color. Normal skin turgor. Extremities: No lower extremity edema. No calf tenderness right shoulder in adduction with squared deformity history of anterior dislocation neurovascular intact Neuro: Oriented X 3. No motor deficit. No sensory deficit. Medications Administered Discontinued Medications Generic Name Dose Route Start Last Admin Trade Name Mily PRN Reason Stop Dose Admin Morphine Sulfate 4 mg 05/14/23 01:50 05/14/23 02:08 Morphine Sulfate 4 Mg/Ml Cartridge IVPUSH 05/14/23 01:51 4 mg ONCE ONE Administration Protocol Ondansetron HCl 4 mg 05/14/23 01:50 05/14/23 02:08 Ondansetron Hcl 4 Mg/2 Ml Vial IVPUSH 05/14/23 01:51 4 mg ONCE ONE Administration Propofol 100 mg 05/14/23 02:16 05/14/23 02:30 Propofol 200 Mg/20 Ml Vial IVPUSH 05/14/23 02:17 100 mg ONCE ONE Administration Medical Decision Making Medical Decision Making [facility] Narrative: Patient with recurrent shoulder dislocation with greater tuberosity fracture case discussed with Orthopedic will follow-up as outpatient for possible surgery as outpatient Procedures Orthopedic Joint Reduction Joint #1: Time Out Performed: Yes Side: right Joint Reduction Location: shoulder Analgesia: procedural sedation Shoulder Technique Used (if applicable): external rotation Post-reduction neuro exam: intact Post-reduction vascular: intact Post Reduction X-Ray Obtained: Yes Post Reduction X-Ray Results: reduced Patient Tolerated Procedure: well Procedural Sedation Indication: fracture/dislocation reduction ASA Class: I Mallampati Class: I Preparation: monitoring manager applied, pulse oximeter, capnometry used, supplemental O2 applied and suction/airway equipment at bedside IV Propofol dose (mg): 100 Patient Tolerated Procedure: well Complications: none Interventions: oxygen applied Discharge Plan Discharge Clinical Impression: Closed dislocation of right shoulder, Fracture of proximal end of right humerus Patient Disposition: Home, Self-Care Instructions: Shoulder Dislocation (ED), Proximal Humerus Fracture (ED) Additional Instructions: Wear the sling all the time as prescribed and follow-up with orthopedics for further management Prescriptions: No Action levetiracetam [Keppra] 500 mg tablet 500 mg PO BID Qty: 60 0RF levetiracetam [Keppra] 500 mg tablet 500 mg PO BID Qty: 60 0RF ibuprofen 600 mg tablet 600 mg PO Q6H PRN (Reason: fever or pain) Qty: 30 0RF levetiracetam [Keppra] 500 mg tablet 500 mg PO BID Qty: 180 0RF Referrals: Barrington Hampton MD [Physician] - 1 week Interventions: ED Discharge Assessment Last Done: 05/14/23 06:29 Discharge Date/Time: 05/14/23 06:31
[2023-05-14] MEDS: propofoL 200 MG/20 ML VIAL 100 MG IVPUSH (02:30)
--- NOTE | 2023-05-14 02:32 | PC.NURSE ---
conscious sedation consent signed by patient. 100 propofol administered by provider @ 0227, for shoulder manipulation procedure. Pt on monitor and storage bin tender, on capnography, resp at bedside. xray here.
== END 2023-05-14 06:31 | disposition home or self-care (01) ==
PROVIDERS: Emergency Provider Internal Medicine
DX: S43.004A Unspecified dislocation of right shoulder joint, initial encounter (principal); S42.201A Unspecified fracture of upper end of right humerus, initial encounter for closed fracture; X58.XXXA Exposure to other specified factors, initial encounter; Y93.9 Activity, unspecified; Y92.9 Unspecified place or not applicable; Y99.9 Unspecified external cause status; Z79.899 Other long term (current) drug therapy
CPT/HCPCS: 23575; 73020; 73030; 96374; 96375; 99284; 99285; J2270; J2405

== ENCOUNTER 2023-05-18 08:49 | Inpatient (IN) | payer MEDICAID, SELFPAY ==
[2023-05-18] VITALS (10 sets, daily range): BP systolic 132–154; BP diastolic 93–103; PULSE 53–130; RESP 16–20; TEMP 36.4–36.9; O2SAT 97–100; BMI 22.1
--- NOTE | ~2023-05-18 | FL_ITS ---
EXAMINATION: XR FL WITH IMAGES CLINICAL INFORMATION: Anterior shoulder dislocation with Hill-Sachs deformity and avulsed greater tuberosity. COMPARISON: None available. TECHNIQUE: Fluoroscopy Supervised By: Dr. Barrington Hampton. Fluoroscopy Time: 0.1 minutes. Cumulative Dose: 0.802 mGy. DAP: 0.0139 mGym2. Images: 3. FINDINGS: Three images demonstrate that the glenohumeral joint is now reduced. The Hill-Sachs deformity persists as does the avulsed greater tuberosity. FL/FL guidance in OR IMPRESSION: 1. Successful reduction of shoulder dislocation. 2. Other findings as above.
--- NOTE | ~2023-05-18 | XR_ITS ---
EXAMINATION: XR SHOULDER, RIGHT CLINICAL INFORMATION: Dislocation COMPARISON: Prior x-rays 05/13/2023 TECHNIQUE: AP external rotation, Grashey, scapular Y, and axillary views of the right shoulder. FINDINGS: Recurrent anterior glenohumeral dislocation. Redemonstrated are comminuted displaced fracture fragments of the greater tuberosity. Question increased degree of comminution as compared to previous. The previously demonstrated bony Bankart fracture is not clearly evident on these images. Acromioclavicular joint is maintained. XR/XR shoulder RT min 2V IMPRESSION: Recurrent anterior glenohumeral joint dislocation. Comminuted displaced fracture of the greater tuberosity is redemonstrated, with question increased comminution as compared to previous.
--- NOTE | ~2023-05-18 | XR_ITS ---
EXAMINATION: XR SHOULDER, RIGHT CLINICAL INFORMATION: Right shoulder dislocation. COMPARISON: 05/18/2023 TECHNIQUE: AP external rotation, Grashey, scapular Y views of the right shoulder. Radiographs reportedly obtained. FINDINGS: Anterior shoulder dislocation with the humeral head projecting over the glenoid. There is a Hill-Sachs defect with a displaced comminuted avulsed greater tuberosity fracture. There is possible slight increased displacement compared with prior. There is soft tissue swelling and gas within the glenohumeral joint space. Acromioclavicular joint is intact. XR/XR shoulder RT min 2V IMPRESSION: As above.
--- NOTE | 2023-05-18 09:35 | PC.NURSE ---
Alert and oriented. two days ago was putting a curtain in place and when he was reaching up her heard a pop. has been wearing a sling at home but the pain has progressively gotten worse. denies numbness and tingling in his fingers. pain is a 10/10. VSS.
--- NOTE | 2023-05-18 09:43 | ED_ITS ---
HPI - Extremity Problem General Chief complaint: Extremity Injury, Upper Stated complaint: ? R SHOULDER DISLOCATION PER EMS Time Seen by Provider: 05/18/23 09:10 Source: patient, EMS and old records reviewed Mode of arrival: EMS Limitations: no limitations History of Present Illness HPI Narrative: 22 year old male with a history significant for seizures on Keppra 500mg BID and recurrent shoulder dislocations presents today via EMS with right shoulder dislocation x2 days. Patient seen in ED 5 days ago s/p seizure with right shoulder dislocation and bankart fracture requiring reduction and sling placement. Seen again in ED the following day after taking off his sling to sleep, dislocating the right shoulder again requiring reduction & sling placement. Patient states he removed his sling again 2 days ago to stretch his arm and felt his shoulder dislocate for a third time. Reports constant pain to the right shoulder and inability to move the right arm. Denies numbness or tingling to the RE, fever, N/V, chest pain or shortness of breath. Denies any new seizures, falls, or trauma to the right shoulder. Has not followed up with ortho outpatient. MD Complaint: extremity pain Onset (ago): day(s) (2) Pain Consistency: constant Location: right Radiation: none Relieving factors: nothing Exacerbating factors: nothing and range of motion Associated symptoms: denies other symptoms Related Data Previous Rx's Medication Instructions Recorded ibuprofen 600 mg tablet 600 mg PO Q6H PRN fever or pain 05/13/23 #30 tabs levetiracetam 500 mg tablet 500 mg PO BID #180 tabs 05/13/23 (Keppra) Allergies Allergy/AdvReac Type Severity Reaction Status Date / Time No Known Allergies Allergy Verified 05/13/23 03:03 Review of Systems Review of Systems: Yes all other systems are reviewed and are negative [facility] Past Medical History Attestation statement: The following information was validated with the patient. Source: old records reviewed and nursing notes reviewed Social History Social History Household Members: Family Housing: Unknown / Unable to assess Do you presently have visiting nurse or other home services: No Alcohol intake: current Alcohol intake frequency: holidays/special occasions only Patient Tobacco Use Status: Never used Tobacco Smoked in Last 30 Days: No e-Cigarette/Vaping Use: Never Used Use of substances other than those prescribed or required for medical reasons: No Substance Use Type: Marijuana Advance Directives: No Advance Directives Information Provided: No service: No Current occupational status: unemployed Physical Exam Vital Signs: Vital Signs: Last Vital Signs Temp 98.2 F 05/18/23 09:32 Pulse 111 H 05/18/23 10:35 Resp 18 05/18/23 10:35 BP 142/93 H 05/18/23 10:35 Pulse Ox 100 05/18/23 10:35 O2 Del Method Room Air 05/18/23 10:35 BMI result Body Mass Index 22.1 Tachycardia and elevated bp noted likely secondary to pain. Appearance: Alert. Oriented X3. No acute distress. Head: normocephalic, atraumatic. Eyes: Pupils equal, round and reactive to light. Neck: Normal inspection. Neck supple. CVS: Normal heart rate and rhythm. Pulses normal. Respiratory: No respiratory distress. Breath sounds normal. Abdomen: Soft and nontender. +BS x4 Skin: Skin warm and dry. Normal skin color. Normal skin turgor. No rashes. Extremities: Obvious deformity to right shoulder, RUE held in adduction and flexion. Humeral head palpated under the right axilla. No lower extremity edema. Neuro/psych: Oriented X 3. No motor deficit. No sensory deficit. Normal speech and cognition. Course Reevaluation(s) Reevaluation #1: Reduction of the right shoulder attempted. Patient will be given versed and intraarticular lidocaine injection for pain and will obtain radiographs prior to reattempt. Time: 09:20 Reevaluation #2: Consulted ortho and spoke with Jenna CRAWLEY who advised us to reattempt shoulder reduction. Right shoulder reduction reattempted and was unsuccessful. Ortho consulted again and patient to be admitted to med surg. Time: 11:45 Medications Administered Discontinued Medications Generic Name Dose Route Start Last Admin Trade Name Ederq PRN Reason Stop Dose Admin Lidocaine HCl 30 ml 05/18/23 09:21 05/18/23 09:45 Lidocaine Hcl 1 % 20 Ml Vial INFILTRATI 05/18/23 09:22 30 ml ONCE ONE Administration Midazolam HCl 1 mg 05/18/23 09:20 05/18/23 11:15 Midazolam Hcl/Pf 2 Mg/2 Ml Vial IVPUSH 06/19/23 09:21 1 mg ONCE ONE Administration Oxycodone HCl 5 mg 05/18/23 09:56 05/18/23 10:02 Oxycodone Hcl Immed Release 5 Mg Tablet PO 05/18/23 09:57 5 mg ONCE ONE Administration Medical Decision Making Medical Decision Making [facility] Narrative: 22 year old male with history significant for seizures and recurrent shoulder dislocations presenting s/p seizure 5 days ago with right shoulder dislocation and reduction x2, now with new right shoulder dislocation following sling removal 2 days ago. Patient is nontoxic appearing, vital signs significant for elevated blood pressure and tachycardia likely secondary to pain. Exam notable for obvious deformity to the right shoulder, right upper extremity held in adduction and flexion with humeral head palpable under the right axilla. Neurovascularly intact distally. Plan: radiographs, reduction, pain control, ortho consult Xray right shoulder shows right shoulder dislocation of the humeral head with comminuted fracture of the greater trochanter. Ortho consulted and patient will be admitted to med surg. Patient is stable at this time. Differential Diagnosis Differential Diagnoses: The differential diagnosis associated with the presentation includes right shoulder dislocation, humeral head fracture, AVN, rotator cuff tear, low suspicion for axillary nerve injury or osteomyelitis Admission/Observation Consideration of admission/observation: Escalation of care including admission/observation considered requiring admit for OR/reduction Consult Healthcare Provider Management of the patient was discussed with: [facility] ortho [facility] Independent Interpretation I performed an independent interpretation of an: Plain X-Ray Interpretation: Xray right shoulder showing dislocation of the humeral head with fracture of the greater trochanter of the proximal humerus, agree with radiologists read. Radiology Impression Discussion of test interpretation with radiology: I have reviewed the radiologist's reading. Radiologist Impression: XR shoulder RT min 2V IMPRESSION Recurrent anterior glenohumeral joint dislocation. Comminuted displaced fracture of the greater tuberosity is redemonstrated, with question increased comminution as compared to previous. External Record Review External record reviewed: Outpatient record and Prior outpatient radiology Prescription Management I considered prescription management with: Pain Medication and Other Chronic Conditions Patient?s care impacted by: Other (seizures) Procedures Orthopedic Joint Reduction Joint #1: Time Out Performed: Yes Side: right Joint Reduction Location: shoulder Analgesia: other (intra-articular lidocaine) Local Anesthesia: lidocaine 1% Amount of anesthesic used (mL): 20 Shoulder Technique Used (if applicable): traction/counter-traction and external rotation Technique used: traction/counter-traction and direct manipulation Post-reduction neuro exam: no change Post-reduction vascular: no change Post Reduction X-Ray Obtained: Yes Post Reduction X-Ray Results: not reduced Splint Applied: No Discharge Plan Discharge Clinical Impression: Dislocation of shoulder, Right humeral fracture Patient Disposition: Admitted As Inpatient
[2023-05-18] MEDS: Lidocaine HCl 1 % 20 ML VIAL 30 ML INFILTRATI (09:45)
[2023-05-18] MEDS: oxyCODONE HCl Immed Release 5 MG TABLET PO ×3 (10:02→21:20)
--- NOTE | 2023-05-18 10:31 | PC.NURSE ---
Verbal order to hold diazapam until ortho returns call to PA.
--- NOTE | 2023-05-18 10:36 | PC.NURSE ---
Resting comfortably in bed, states pain has improved but still remains around a 6 or 7. Resting comfortably in bed with eyes closed.
[2023-05-18] MEDS: Midazolam HCl/PF 2 MG/2 ML VIAL 1 MG IVPUSH (11:15)
--- NOTE | 2023-05-18 11:32 | PC.NURSE ---
and PA into room to attempt right shoulder reduction. Versed given prior to procedure per order. Additional dose of lidocaine given to right shoulder by provider. Procedure started at 11:35am unable to reduce shoulder.
--- NOTE | 2023-05-18 11:59 | PHA.MEDREC ---
Pharmacy Consult ? Medication Reconciliation Pharmacy has completed the medication reconciliation.
--- NOTE | 2023-05-18 12:45 | PM.HPOR ---
History of Present Illness History of Present Illness Date of Service: 05/18/23 Chief complaint: Right Shoulder Closed vs Open Reduction Narrative: Viki Frazier is a 22 year old male with a history significant for seizures on Keppra 500mg BID and recurrent shoulder dislocations presents today via EMS with right shoulder dislocation x2 days. Patient seen in ED 5 days ago s/p seizure with right shoulder dislocation and Bankhart fracture requiring reduction and sling placement. Seen again in ED the following day after taking off his sling to sleep, dislocating the right shoulder again requiring reduction & sling placement. Patient states he removed his sling again 2 days ago to stretch his arm and felt his shoulder dislocate for a third time. Reports constant pain to the right shoulder and inability to move the right arm. Denies numbness or tingling to the RUE. Reports that he typically experiences a seizure when he is under stress and does not take his medication. Review of Systems Review of Systems: Yes all other systems are reviewed and are negative [facility] Social History Social History Household Members: Family Housing: Unknown / Unable to assess Do you presently have visiting nurse or other home services: No Alcohol intake: current Alcohol intake frequency: holidays/special occasions only Patient Tobacco Use Status: Never used Tobacco Smoked in Last 30 Days: No e-Cigarette/Vaping Use: Never Used Use of substances other than those prescribed or required for medical reasons: No Substance Use Type: Marijuana Advance Directives: No Advance Directives Information Provided: No service: No Current occupational status: unemployed Meds Allergies Allergy/AdvReac Type Severity Reaction Status Date / Time No Known Allergies Allergy Verified 05/13/23 03:03 Physical Exam Vital Signs: Vital Signs: Last Vital Signs Temp 98.2 F 05/18/23 09:32 Pulse 111 H 05/18/23 10:35 Resp 18 05/18/23 10:35 BP 142/93 H 05/18/23 10:35 Pulse Ox 100 05/18/23 10:35 O2 Del Method Room Air 05/18/23 10:35 BMI result Body Mass Index 22.1 Const: General: cooperative, healthy appearing and no acute distress Resp: Effort & Inspection: normal respiratory effort and able to speak in complete sentences Cardio: Rate: regular rate Peripheral pulses: Peripheral pulses 2+ throughout GI: Palpation (GI): Soft to palpation Skin: Lesions: no lesions Rashes: no rashes Extrem: Other: Right upper extremity able to move all digits. REports that sensation is intact. Able to flex and extend at the elbow. Results Labs Labs: All other labs normal. Assessment and Plan (1) Dislocation of shoulder: Status: Acute I discussed the case with Dr. Hampton who was also available to see the patient and explained the extent of the injury to the patient and options available which include surgical intervention. I explained the procedure in detail along with the length of recovery and rehab course. I explained the risk, benefits and alternatives. Risk including, but not limited to infection, blood clots, bleeding, non union or malunion and nerve/tissue damage to surrounding areas. I answered all their questions and with their understanding they have consented to move forward with closed vs open reduction of the right shoulder. NPO after midnight. (2) Right humeral fracture: Status: Acute (3) Seizure: Status: Acute Time Spent With Patient Time: Total time managing care of this patient today ____ minutes. Quality Stroke Does the patient have a stroke diagnosis?: No VTE Prior VTE?: No VTE Risk Level:: Medical - moderate - high VTE Device Contraindication: N/A - Device Ordered VTE Drug Contraindication: N/A - Med Ordered Procedures Date of Service Date of Service: 05/18/23
[2023-05-18] MEDS: Morphine Sulfate 4 MG/ML CARTRIDGE IVPUSH (13:19)
--- NOTE | 2023-05-18 13:22 | PC.NURSE ---
Alert and oriented. states 7/10 right shoulder pain, medicated per order. Right arm repositioned for comfort. Vss.
[2023-05-18] MEDS: 0.9 % Sodium Chloride Flush 3 ML SYRINGE IVFLUSH ×2 (16:30→22:58)
--- NOTE | 2023-05-18 16:31 | PC.NURSE ---
Medicated with prn oxycodone for 10/10 right shoulder pain. Message sent to admitting provider regarding keppra orders.
[2023-05-18] MEDS: Lactated Ringers 1,000 ML 100 ML IVCONT (17:53)
--- NOTE | 2023-05-18 17:58 | PC.NURSE ---
Report called to accepting unit, LR running per order.
--- NOTE | 2023-05-18 18:18 | MHC.CM.PN ---
CM met with admitted patient with bed assignment pending. A&Ox4. Lives alone. Unemployed. No DME/Services. PCP at [facility]. Unvaccinated against Covid 19. THRIVE assessment completed. Job seeking Given [employer] [facility] web site information for jobs. No HCP. HCP reviewed, completed and signed. Copies given. Uploaded into [employer] and [facility] Expanse. HCP/sister Allie eVla ([phone]). D/C plan: Home without services. Family to transport. CM will follow for discharge needs.
[2023-05-18] MEDS: Docusate Sodium 100 MG CAPSULE PO (21:20)
[2023-05-18] MEDS: levETIRAcetam 500 MG TABLET PO (22:46)
[2023-05-19] VITALS (11 sets, daily range): BP systolic 131–163; BP diastolic 81–105; PULSE 48–84; RESP 12–20; TEMP 36.1–36.7; O2SAT 96–99
[2023-05-19] MEDS: oxyCODONE HCl Immed Release 5 MG TABLET PO ×3 (03:16→12:56)
[2023-05-19] MEDS: Lactated Ringers 1,000 ML 100 ML IVCONT ×2 (03:17→20:00)
[2023-05-19] MEDS: levETIRAcetam 500 MG TABLET PO ×2 (07:19→20:00)
--- NOTE | 2023-05-19 13:49 | PC.NURSE ---
PT FROM 357 IV PATENT LEFT WRIST
--- NOTE | 2023-05-19 15:09 | P.CONAN_ITS ---
HPI - Anesthesia Eval Consult details Narrative: Right humeral fracture PMFSH Active Problems Active Problems: All Active Problems Seizure (Acute) Dislocation of shoulder (Acute) Right humeral fracture (Acute) Past Medical History Medical History Hx of reduction of closed dislocation Family History Family history of problems with anesthesia: No Surgical History History of Problems with Anesthesia: No Social History Social History Household Members: None Housing: Apartment Do you presently have visiting nurse or other home services: No Alcohol intake: current Alcohol intake frequency: does not drink Patient Tobacco Use Status: Never used Tobacco e-Cigarette/Vaping Use: Never Used Second Hand Smoke Exposure: No Substance Use Type: Marijuana service: No Current occupational status: unemployed Meds Allergies Allergy/AdvReac Type Severity Reaction Status Date / Time No Known Allergies Allergy Verified 05/13/23 03:03 Active Medications: Current Medications Acetaminophen (Acetaminophen 325 Mg Tablet) 650 mg PO Q6H PRN PRN Reason: Pain, Mild (Pain Scale 1-3) Docusate Sodium (Docusate Sodium 100 Mg Capsule) 100 mg PO BID [facility] Last Admin: 05/19/23 07:08 Dose: Not Given Cefazolin Sodium/Dextrose (Ancef) 2 gm in 50 mls @ 100 mls/hr IV PREOP HOLLY Stop: 05/19/23 23:59 Lactated Ringer's (Lr) 1,000 mls @ 100 mls/hr IVCONT .Q10H [facility] Last Infusion: 05/19/23 13:24 Dose: Infused Levetiracetam (Levetiracetam 500 Mg Tablet) 500 mg PO BID [facility] Last Admin: 05/19/23 07:19 Dose: 500 mg Ondansetron HCl (Ondansetron Hcl 4 Mg/2 Ml Vial) 4 mg IVPUSH Q8H PRN PRN Reason: Nausea and Vomiting Oxycodone HCl (Oxycodone Hcl Immed Release 5 Mg Tablet) 5 mg PO Q4H PRN PRN Reason: Pain, Moderate(Pain Scale 4-6) Last Admin: 05/19/23 12:56 Dose: 5 mg Sodium Chloride (0.9 % Sodium Chloride Flush 3 Ml Syringe) 3 ml IVFLUSH QSHIFT [facility] Last Admin: 05/19/23 14:11 Dose: Not Given Exam Exam Date and Time: May 19, 2023 1509 Height,Weight and Vital Signs: Height 5 ft 11 in Weight 71.9 kg Last Vital Signs Temp 97.1 F 05/19/23 13:46 Pulse 56 05/19/23 13:46 Resp 20 05/19/23 13:46 BP 144/102 H 05/19/23 13:46 Pulse Ox 98 05/19/23 13:46 O2 Del Method Room Air 05/19/23 13:46 Airway Mallampati Class: II TM Dist: >3cm Neck ROM: Full Loose/Missing/Broken Teeth: No Heart: rrr+[id number] Lungs: cta b/l Assessment and Plan Assessment Anesthesia Assessment: Anesthesia Plan Discussed and Chart Reviewed Final Anesthetic Review Family History of Problems with Anesthesia: No History of Problems with Anesthesia: No NPO: Yes ASA Class: II Final Preanesthetic Review: No Changes in Pt Med Stat, Meds/Allgs Chart Reviewed, Consent Obtained/Reviewed and Anes Risks/Benef Reviewed Patient Risk: Intermediate Procedure Risk: Intermediate Assessment/Block/Sedation in SS: Assess/Block/Sedation-SS Anesthetic Plan Anesthetic Plan: GA, Regional Block and Agree w/ Assess. and Plan Disposition: Standard PACU
--- NOTE | 2023-05-19 19:09 | PM.OP ---
Brief Operative Note Date of Service: 05/19/23 Pre-op diagnosis: right shoulder fracture/dislocation Post-op diagnosis: same Procedure: Open reduction shoulder dislocation Open reduction internal fixation greater tuberosity fracture Implants: [employer]hew 4.75 Helacoil x 2 Surgeon: Barrington Hampton MD Anesthesia: GETA and regional Was an Exhibit Display Representative used for this Procedure?: No Estimated blood loss (mL): 100 IV fluids (mL): 1,000 Pathology: none sent Condition: stable Disposition: PACU
[2023-05-19] MEDS: Docusate Sodium 100 MG CAPSULE PO (20:00)
[2023-05-19] MEDS: 0.9 % Sodium Chloride Flush 3 ML SYRINGE IVFLUSH (20:01)
[2023-05-19] MEDS: ceFAZolin Sodium/Dextrose,Iso 2 GM/50 ML PIGGYBACK IV (21:19)
[2023-05-20] MEDS: Acetaminophen 325 MG TABLET 650 MG PO (01:19)
[2023-05-20] MEDS: oxyCODONE HCl Immed Release 5 MG TABLET PO ×2 (01:20→05:35)
[2023-05-20] MEDS: HYDROmorphone HCl 0.5 MG/0.5 ML SYRINGE 0.25 MG IV (02:10)
--- NOTE | 2023-05-20 02:31 | PC.NURSE ---
Patient arrived back to s3 from PACU in the evening s/p ORIF right shoulder (general with block per PACU report). A&Ox4. Patient denied pain and declined frequently offered prn pain medications. Pt was educated by this conventional underwriter on proactive pain management importance as nerve block wears off overnight. Pt allowing ice packs at times instead. 0100 hour Pt was agreeable to taking prn tylenol and oxycodone, given. While awaiting effect shortly after the patient was heard yelling from room. RN responded to bedside, patient stated, I need to take this (pointing at immobilizer sling) off and straighten my arm. Patient educated on importance of not touching or adjusting sling. Covering PA made aware, order placed for 1x 0.25mg IV dilaudid, given with +effect. Patient noted on pain reassessment to be adjusting lower strap of sling. RN replaced and reinforced importance and PA orders to not touch sling. Will continue to monitor for the remainder of shift.
[2023-05-20 03:38] VITALS: BP 156/98; PULSE 58; RESP 16; TEMP 36.8; O2SAT 100
[2023-05-20] MEDS: Lactated Ringers 1,000 ML 100 ML IVCONT (05:36)
[2023-05-20] MEDS: oxyCODONE HCl ER 10 MG TAB.ER.12H PO (07:08)
[2023-05-20] MEDS: levETIRAcetam 500 MG TABLET PO (07:09)
[2023-05-20] MEDS: Docusate Sodium 100 MG CAPSULE PO (07:09)
--- NOTE | 2023-05-20 07:41 | P.DS_ITS ---
DS: Providers Provider Date of Service: 05/20/23 Date of admission: 05/18/23 11:53 Primary care physician: Unknown Physician DS: Diagnosis Discharge Diagnosis (1) Dislocation of shoulder: Status: Acute (2) Right humeral fracture: Status: Acute (3) Seizure: Status: Acute DS: Summary Hospital Course Hospital Course: The patient underwent a successful right shoulder open reduction shoulder dislocation and open reduction internal fixation greater tuberosity fracture, they were transferred to PACU and then to the floor to recover. During their stay, their vitals were stable, afebrile at 98.3. POD 1 patient remains in the sling at all times. Pain was managed and the plan was to be discharged home with orthopedic outpatient followup. Time Spent with Patient Time attestation: Total time managing care of this patient today ____ minutes. Discharge coordination time: Less than 30 minutes Quality: Safe Use of Opioids Does Pt have an Active Cancer Diagnosis on the Problem List?: No Quality: Stroke Does the patient have a stroke diagnosis?: No Physical Exam Vital Signs: Vital Signs: Last Vital Signs Temp 98.3 F 05/20/23 03:38 Pulse 58 05/20/23 03:38 Resp 16 05/20/23 03:38 BP 156/98 H 05/20/23 03:38 Pulse Ox 100 05/20/23 03:38 O2 Del Method Room Air 05/20/23 03:38 O2 Flow Rate 4 05/19/23 19:27 BMI result Body Mass Index 22.1 Const: General: cooperative, healthy appearing and no acute distress Resp: Effort & Inspection: normal respiratory effort and able to speak in complete sentences Cardio: Rate: regular rate Peripheral pulses: Peripheral pulses 2+ throughout GI: Palpation (GI): Soft to palpation Skin: Lesions: no lesions Rashes: no rashes Extrem: Other: Right shoulder banadages are c/d/i. Able to move all digits. NVI. Discharge Plan Discharge Anticipated Discharge Date/Time: 05/20/23 07:37 Patient Disposition: Home, Self-Care Discharge Diagnosis: s/p open reduction shoulder dislocation and open reduction internal fixation greater tuberosity fracture Referrals: Jenna Sandoval PA-C [Physician Television Reporter] - 1 Week Discharge Medications: New acetaminophen 325 mg Tablet 650 mg PO Q6H PRN (Reason: Pain, Mild (Pain Scale 1-3)) 30 Days Qty: 240 0RF docusate sodium 100 mg Capsule 100 mg PO BID 30 Days Qty: 60 0RF oxycodone 5 mg Tablet 5 mg PO Q4H PRN (Reason: Pain, Moderate(Pain Scale 4-6)) 7 Days Qty: 42 0RF Rx Instructions: Partial Fill upon patient request. Continued levetiracetam [Keppra] 500 mg tablet 500 mg PO BID Qty: 180 0RF Discontinued ibuprofen 600 mg tablet 600 mg PO Q6H PRN (Reason: fever or pain) Qty: 30 0RF Discharge Orders: Discharge Order (Routine); Ordered 05/20/23 Ordered By: Jenna Sandoval Diet: Advance to usual diet Activity on Discharge: Use Splints or Immobilizers Stand Alone Forms: Patient Portal Discharge page Care Plan Goals: Restore stability and fxn to the right shoulder Health Concerns: Seizure disorder - On Keppra Plan of Treatment: Wear sling at all times No lifting-OK to move arm at elbow and wrist Do not bathe or shower- Keep bandage clean, dry, and intact Take Percocet 5/325mg tabs 1 tab by mouth every 4-[address] [facility] orthopedics with any questions or concerns. Follow up with orthopedics in 7-10 days post op Assessment: Stable for discharge
[2023-05-20 07:42] VITALS: BP 152/96; PULSE 62; RESP 18; TEMP 36.6; O2SAT 98
--- NOTE | 2023-05-20 08:56 | MHC.CM.PN ---
pt dcd home no sevceis needed
--- NOTE | 2023-05-20 15:19 | HO.POSTANES ---
Post Anesthesia Evaluation Post Anesthesia Evaluation Date of Service: 05/20/23 Vital Signs: Vital Signs Temp Pulse Resp BP Pulse Ox O2 Del Method 05/20/23 07:42 97.8 F 62 18 152/96 H 98 Room Air 05/20/23 03:38 98.3 F 58 16 156/98 H 100 Room Air Anesthesia: Nerve Block and General Mental Status: Awake Pain Control: Satisfactory Nausea/Vomiting: None Hydration: Adequate Anesthesia-Related Issues: No Anes. Related Issues
--- NOTE | 2023-06-19 14:52 | W.PM.OPN ---
Operative Note Operative Note Date of Service: 06/19/23 Narrative: Date of Service: 05/19/23 Pre-op diagnosis: right shoulder fracture/dislocation Post-op diagnosis: same Procedure: Open reduction shoulder dislocation Open reduction internal fixation greater tuberosity fracture Implants: Hammond [employer]hew 4.75 Helacoil x 2 Surgeon: Barrington Hampton MD Anesthesia: GETA and regional Was an Branch Operations Coordinator used for this Procedure?: No Estimated blood loss (mL): 100 IV fluids (mL): 1,000 Pathology: none sent Condition: stable Disposition: PACU Procedure in detail: Patient was brought to the operating room and placed the the beach chair position. All bony prominences were well padded and the limb was prepped and draped in standard sterile fashion. A time out was called to identify proper site, proper procedure and proper surgeon. IV antibiotics per weight were administered. I began by making a Lateral foot deltoid splitting approach to the shoulder. This was extended 5 cm distal to the acromion. The deltoid was identified and fibers were split digitally and a [employer] was used to retract muscle as I identified the subacromial bursa. This was spread again bluntly until I was able to visualize the rotator cuff. A liliana;f retainer was placed and I irrigated the fracture. The GH was unstable and dislocating anteriorly. I was able to identify the large avulsed bony fragment and when this was reduced the shoulder was stable. I placed a [employer]hew 4.75 Healicoil double loaded suture anchor just medial to the avulsed portion and then used a bird's beak to retrieve the 4 suture limbs through the tendon medial to the avulsion. I then brought these down to a far lateral anchor anchor. This reproduced the normal anatomy and had a compressive affect on the cuff and the avulsed bony fragment. THis was locked in the suture anduUnder visual inspection the avulsion was reduced in the cuff was intact and stable. Radiography confirmed reduction of the bony fragment. I was satisfied with the repair. The GH was stable/ The patient was placed in an abduction sling, extubated and brought to the recovery room in stable condition. There were no known complications.
== END 2023-05-20 09:26 | disposition home or self-care (01) | DRG 315 ==
LOC: HO.ED 11:53 → HO.EDOVER 12:00 → HO.S3 16:59
PROVIDERS: Orthopaedic Surgery; Admitting Provider Physician Assistant; Emergency Provider Student in an Organized Health Care Education/Training Program; PCP General Practice; Visit Provider Physician Assistant
PROC: 0RSJ04Z Reposition Right Shoulder Joint with Internal Fixation Device, Open Approach (ICD-10-PCS; principal; 2023-05-19 16:50)
DX: S42.251A Displaced fracture of greater tuberosity of right humerus, initial encounter for closed fracture (principal); G40.909 Epilepsy, unspecified, not intractable, without status epilepticus; M24.411 Recurrent dislocation, right shoulder; X58.XXXA Exposure to other specified factors, initial encounter; G89.18 Other acute postprocedural pain; Z91.199 Patient's noncompliance with other medical treatment and regimen due to unspecified reason; Z79.899 Other long term (current) drug therapy
CPT/HCPCS: 73030; 99285; C1713; J0690; J1170; J2250; J2270; J2405; J3010

== ENCOUNTER → 2023-05-18 11:53 | Outpatient (BNV) | payer MEDICAID, SELFPAY | PROVIDERS: Admitting Provider Physician Assistant; Emergency Provider Student in an Organized Health Care Education/Training Program; Visit Provider Physician Assistant | DX: S42.251A Displaced fracture of greater tuberosity of right humerus, initial encounter for closed fracture (principal); S43.004A Unspecified dislocation of right shoulder joint, initial encounter; S42.301A Unspecified fracture of shaft of humerus, right arm, initial encounter for closed fracture; R56.9 Unspecified convulsions | CPT/HCPCS: 23630; 99221 ==

== ENCOUNTER 2023-05-24 08:05 | Emergency (ER) | payer MEDICAID, SELFPAY ==
[2023-05-24 08:12] VITALS: BP 134/85; PULSE 58; RESP 12; TEMP 37.1; O2SAT 98; BMI 34.9
--- NOTE | 2023-05-24 08:23 | ED_ITS ---
HPI - General Adult General Chief complaint: Wound/Laceration Stated complaint: taping adjustment to wound Time Seen by Provider: 05/24/23 08:22 Source: patient Mode of arrival: ambulatory Limitations: no limitations History of Present Illness HPI narrative: Patient is a 22 year old assigned male at with a history of seizures and a recent humeral surgery presenting to the emergency department today requesting help with his right shoulder dressing. Patient states that he can't get his surgical wound bandage retaped and he just needs helped with that. Patient denies any dizziness, lightheadedness, abdominal pain, nausea, vomiting, fever, chills, blurry vision, double vision, loss of vision, chest pain, difficulty breathing, shortness of breath, back pain, night sweats, pain with urination, increased urinary frequency, increased urinary urgency, blood in his urine or stool, syncope or a near syncopal episode, recent trauma or falls, bowel incontinence, bladder incontinence, bowel retention, bladder retention, or any other complaints at this time. Severity: mild Relieving factors: none Exacerbating factors: none Associated symptoms: denies other symptoms Treatments prior to arrival: none Related Data Previous Rx's Medication Instructions Recorded levetiracetam 500 mg tablet 500 mg PO BID #180 tabs 05/13/23 (Keppra) acetaminophen 325 mg tablet 650 mg PO Q6H PRN Pain, Mild (Pain 05/20/23 Scale 1-3) 30 days #240 tabs docusate sodium 100 mg capsule 100 mg PO BID 30 days #60 caps 05/20/23 oxycodone 5 mg tablet 5 mg PO Q4H PRN Pain, 05/20/23 Moderate(Pain Scale 4-6) 7 days #42 tabs Allergies Allergy/AdvReac Type Severity Reaction Status Date / Time No Known Allergies Allergy Verified 05/13/23 03:03 Review of Systems Constitutional: Constitutional: Reports no additional constitutional complaints, Denies chills, Denies fever(s) and Denies night sweats Eyes: Eyes: Reports no additional eye complaints, Denies blurry vision, Denies change in vision, Denies diplopia, Denies eye discharge, Denies loss of vision and Denies eye pain ENT: Denies dizziness Cardiovascular: Cardiovascular: Reports no additional cardiovascular complaints, Denies chest pain, Denies lightheadedness, Denies Loss of Consciousness and Denies dyspnea Respiratory: Respiratory: Reports no additional respiratory complaints and Denies dyspnea Gastrointestinal: Gastrointestinal: Reports no additional gastrointestinal complaints, Denies abdominal pain, Denies melena, Denies hematochezia, Denies change in bowel habits and Denies change in stool character Genitourinary: Genitourinary: Reports no additional male genitourinary complaints, Denies hematuria, Denies oliguria, Denies difficulty urinating, Denies dysuria, Denies urinary frequency, Denies urinary hesitancy, Denies uri nary incontinence and Denies urinary urgency Musculoskeletal: Musculoskeletal: Reports no additional musculoskeletal complaints, Denies numbness and Denies tingling Integumentary/Breasts: Comments: right shoulder wound Neurologic: Denies dizziness, Denies loss of vision, Denies numbness and Denies tingling Psychiatric: Psychiatric: Reports no additional psychiatric complaints Endocrine: Endocrine: Reports no additional endocrine complaints Hematologic/Lymphatic: Hematologic/Lymphatic: Reports no additional hematologic/lymphatic complaints Allergic/Immunologic: Allergic/Immunologic: Reports no additional allergic/i mmunologic complaints PMFSH Past Medical History Attestation statement: The following information was validated with the patient. Source: old records reviewed and nursing notes reviewed Medical History Hx of reduction of closed dislocation Social History Social History Household Members: None Housing: Apartment Do you presently have visiting nurse or other home services: No Alcohol intake: current Alcohol intake frequency: does not drink Patient Tobacco Use Status: Never used Tobacco e-Cigarette/Vaping Use: Never Used Second Hand Smoke Exposure: No Substance Use Type: Marijuana Advance Directives: Yes Advance Directives on File: Yes Advance Directives Date on File: 05/18/23 service: No Current occupational status: unemployed Physical Exam ED Vital Signs: Vital Signs - 24 hr 05/24/23 08:12 Temperature 98.7 F Pulse Rate 58 Respiratory Rate 12 Blood Pressure 134/85 Pulse Oximetry 98 BMI result Body Mass Index 34.9 Const General: cooperative, no acute distress, alert and awake Nutritional Appearance: well nourished Orientation/consciousness: patient oriented x3 Limitations: no limitations HENMT Head: Yes normal to inspection and Yes atraumatic Ears: hearing grossly normal bilaterally and external ears normal General nose exam: Normal external nose present, no nasal discharge noted and no epistaxis Face and sinus: Yes normal facial exam, No abrasion and No laceration Mouth: Normal oral and palatal mucosa present, no drooling and no muffled voice Eyes General: appearance normal, both eyes and all related structures Periorbital: periorbital findings normal Eyelids: Yes eyelids normal Conjunctivae: conjunctivae normal Pupils: Equal, round and reactive pupils present EOM: EOMs intact bilaterally Neck Neck: Yes normal visual inspection, Yes full ROM and Yes no lymphadenopathy Chest Chest palpation & inspection: normal inspection of the chest Resp Effort & Inspection: normal respiratory effort and able to speak in complete sentences GI Inspection: Yes normal to inspection Neuro General: patient oriented x3 and moves all extremities Cranial nerves: Yes Equal, round and reactive pupils present Cognition (Neuro): normal cognition Motor exam (neuro): 5/5 motor strength present throughout Sensory Exam: Normal double simultaneous stimulation for sensation Coordination: [id number] test normal Extrem Other: surgical wound present to the right shoulder, appropriately healing, no drainage, no erythema General: Yes full ROM and Yes capillary refill normal Psych Appearance: grossly normal Mental Status: mental status grossly normal Affect: normal affect Attitude: cooperative Thought process: Normal thought process present Thought content: Normal thought content present Insight: Good insight present (Psych) Medical Decision Making Medical Decision Making MDM Narrative: Patient is a 22 year old assigned male at with a history of seizures and recent humerus surgery presenting to the emergency department today for rebandaging of his surgical wound. Patient's physical exam was as noted in the physical exam portion of this chart. Patient's wound was rebandaged without incident. I explained my physical exam findings to the patient. I answered all questions asked by the patient. I stressed the importance of the patient taking his medication as prescribed. I stressed the importance of the patient following up with his primary care provider and his orthopedic surgeon. I stressed the importance of the patient returning to the emergency department immediately if his symptoms were to worsen or if he were to develop any dizziness, shortness of breath, difficulty breathing, chest pain, blurry vision, loss of vision, nausea, vomiting, abdominal pain, fever, chills, back pain, or any other complaints. Patient verbalized agreement and understanding with this treatment plan and discharge. Differential Diagnosis Differential Diagnoses: The differential diagnosis associated with the presentation includes redressing of wound, surgical wound examination Discharge Plan Discharge Clinical Impression: Surgical wound present Patient Disposition: Home, Self-Care Additional Instructions: Follow up with your primary care provider and your orthopedic surgeon. Return to the emergency department immediately if your symptoms worsen or if you develop any dizziness, shortness of breath, difficulty breathing, chest pain, blurry vision, loss of vision, nausea, vomiting, abdominal pain, fever, chills, back pain, or any other complaints. Prescriptions: No Action levetiracetam [Keppra] 500 mg tablet 500 mg PO BID Qty: 180 0RF acetaminophen 325 mg Tablet 650 mg PO Q6H PRN (Reason: Pain, Mild (Pain Scale 1-3)) 30 Days Qty: 240 0RF docusate sodium 100 mg Capsule 100 mg PO BID 30 Days Qty: 60 0RF oxycodone 5 mg Tablet 5 mg PO Q4H PRN (Reason: Pain, Moderate(Pain Scale 4-6)) 7 Days Qty: 42 0RF Rx Instructions: Partial Fill upon patient request. Referrals: [facility] [Primary Care Provider] - Print Language: Barbadian
[2023-05-24 08:36] VITALS: BP 136/91; PULSE 68; RESP 18; TEMP 37.2
--- NOTE | 2023-05-24 08:50 | PC.NURSE ---
evaluated by provider, wound dressing redressed.
== END 2023-05-24 09:06 | disposition home or self-care (01) ==
PROVIDERS: Emergency Provider Emergency Medicine
DX: Z48.00 Encounter for change or removal of nonsurgical wound dressing (principal); Z79.899 Other long term (current) drug therapy
CPT/HCPCS: 99282; 99283

== ENCOUNTER 2023-05-25 13:22 | Outpatient (REF) | payer MEDICAID, SELFPAY ==
--- NOTE | ~2023-05-25 | XR_ITS ---
EXAMINATION: XR SHOULDER, RIGHT CLINICAL INFORMATION: Pain right shoulder COMPARISON: 05/18/2023 TECHNIQUE: Single transscapular view of the right shoulder is presented today 06/10/2023 for interpretation. XR/XR shoulder RT min 2V FINDINGS/IMPRESSION: Surgical [place] visualized overlying soft tissues of right shoulder. Humeral head overlies the scapular Y. Multiple ossific/dense fragments are seen in the soft tissues adjacent to the proximal humerus. Evaluation limited on the single view provided.
== END 2023-05-25 13:23 | disposition home or self-care (01) ==
LOC: HO.HOSX 13:22
PROVIDERS: Visit Provider Physician Assistant
DX: S42.301D Unspecified fracture of shaft of humerus, right arm, subsequent encounter for fracture with routine healing (principal)
CPT/HCPCS: 73030; 99212

== ENCOUNTER 2023-06-03 10:41 | Outpatient (REF) | payer MEDICAID, SELFPAY ==
--- NOTE | ~2023-06-03 | XR_ITS ---
EXAMINATION: XR SHOULDER, RIGHT XR SHOULDER, LEFT CLINICAL INFORMATION: History of right shoulder dislocation. Recent seizure. Left shoulder pain. COMPARISON: 05/25/2023 and 05/18/2023 and 01/10/2023 TECHNIQUE: AP, Grashey and transscapular Y views of the left shoulder. Single AP view of the right shoulder. XR/XR shoulder RT min 2V FINDINGS/IMPRESSION: Right shoulder: Surgical [place] visualized overlying soft tissues of right shoulder. Decreased subacromial joint space. Comminuted fracture of the greater tuberosity with Hill-Sachs deformity related to anterior shoulder dislocation. Left shoulder: The humeral head partially overlies the glenoid. There is an age-indeterminate Hill-Sachs lesion. Findings may represent an anterior shoulder dislocation. Advise clinical correlation.
== END 2023-06-03 10:42 | disposition home or self-care (01) ==
LOC: HO.HOSX 10:41
PROVIDERS: Visit Provider Physician Assistant
DX: S42.301D Unspecified fracture of shaft of humerus, right arm, subsequent encounter for fracture with routine healing (principal); X58.XXXD Exposure to other specified factors, subsequent encounter; Z98.890 Other specified postprocedural states
CPT/HCPCS: 73030

== ENCOUNTER 2023-06-12 08:43 | Emergency (ER) | payer MEDICAID, SELFPAY ==
[2023-06-12] VITALS (12 sets, daily range): BP systolic 116–143; BP diastolic 81–98; PULSE 59–74; RESP 11–25; TEMP 36.6–36.9; O2SAT 95–100; BMI 20.9
--- NOTE | ~2023-06-12 | XR_ITS ---
EXAMINATION: XR SHOULDER, LEFT CLINICAL INFORMATION: History of shoulder dislocation and recent seizure. Evaluate alignment, include axillary view. COMPARISON: CT left shoulder from 01/10/2023. Radiographs acquired earlier in the day on 06/12/2023. TECHNIQUE: Four views of the left shoulder. XR/XR shoulder LT min 2V FINDINGS AND IMPRESSION: There is posteroinferior humeral head dislocation and small glenoid fracture fragments are present at the posteroinferior glenoid. There is an old reverse Hill-Sachs lesion of the anterior humeral head. The clavicle and acromioclavicular joint are normal.
--- NOTE | ~2023-06-12 | XR_ITS ---
EXAMINATION: XR SHOULDER, LEFT CLINICAL INFORMATION: Dislocation. COMPARISON: Radiograph of the left shoulder earlier today. TECHNIQUE: Two views of the left shoulder. FINDINGS: Successful reduction of previously seen dislocation with glenohumeral joint now in anatomic alignment. Small cortical deformity in the inferior glenoid, suspicious for an osseous injury. Reverse Hill-Sachs lesion in the anterior humeral head, best seen on additional views from earlier today. XR/XR shoulder LT min 2V IMPRESSION: 1. Successful reduction of the glenohumeral joint. 2. Small cortical deformity in the inferior glenoid, suspicious for an osseous injury.
--- NOTE | ~2023-06-12 | XR_ITS ---
EXAMINATION: XR SHOULDER, RIGHT XR SHOULDER, LEFT CLINICAL INFORMATION: History of right shoulder dislocation. Recent seizure. Left shoulder pain. COMPARISON: 05/25/2023 and 05/18/2023 and 01/10/2023 TECHNIQUE: AP, Grashey and transscapular Y views of the left shoulder. Single AP view of the right shoulder. XR/XR shoulder LT min 2V FINDINGS/IMPRESSION: Right shoulder: Surgical [place] visualized overlying soft tissues of right shoulder. Decreased subacromial joint space. Comminuted fracture of the greater tuberosity with Hill-Sachs deformity related to anterior shoulder dislocation. Left shoulder: The humeral head partially overlies the glenoid. There is an age-indeterminate Hill-Sachs lesion. Findings may represent an anterior shoulder dislocation. Advise clinical correlation.
--- NOTE | 2023-06-12 10:55 | ED.EXTPRO ---
HPI - Extremity Problem General Chief complaint: Extremity Injury, Upper Stated complaint: l shoulder dislocated Time Seen by Provider: 06/12/23 09:24 Source: patient Mode of arrival: ambulatory Limitations: no limitations History of Present Illness HPI Narrative: This is a 22 years old male with history of shoulder dislocation presented to the emergency department complaining of left shoulder pain. He stated he was a [facility] he was in the ICU post seizure intubated from the to Yesterday . He went home Yesterday .Therefore I think the initial dislocation was 06/07 MD Complaint: extremity pain Onset (ago): day(s) (2) Pain Consistency: constant Location: left Quality: aching Radiation: none Relieving factors: nothing and movement Exacerbating factors: nothing and range of motion Related Data Previous Rx's Medication Instructions Recorded levetiracetam 500 mg tablet 500 mg PO BID #180 tabs 05/13/23 (Keppra) acetaminophen 325 mg tablet 650 mg PO Q6H PRN Pain, Mild (Pain 05/20/23 Scale 1-3) 30 days #240 tabs docusate sodium 100 mg capsule 100 mg PO BID 30 days #60 caps 05/20/23 oxycodone 5 mg tablet 5 mg PO Q4H PRN Pain, 05/20/23 Moderate(Pain Scale 4-6) 7 days #42 tabs Allergies Allergy/AdvReac Type Severity Reaction Status Date / Time No Known Allergies Allergy Verified 06/03/23 13:26 Review of Systems ENT: Reports system reviewed and no additional complaints, except as documented Gastrointestinal: Gastrointestinal: Reports no additional gastrointestinal complaints Musculoskeletal: Musculoskeletal: Reports other (left shoulder pain) [facility] Past Medical History Medical History Hx of reduction of closed dislocation Social History Social History Household Members: None Housing: Apartment Do you presently have visiting nurse or other home services: No Alcohol intake: current Alcohol intake frequency: does not drink Patient Tobacco Use Status: Never used Tobacco e-Cigarette/Vaping Use: Never Used Second Hand Smoke Exposure: No Substance Use Type: Marijuana Advance Directives: Yes Advance Directives on File: Yes Advance Directives Date on File: 05/18/23 service: No Current occupational status: unemployed Physical Exam Vital Signs: Vital Signs: Last Vital Signs Temp 98.4 F 06/12/23 16:34 Pulse 60 06/12/23 16:34 Resp 16 06/12/23 16:34 BP 134/95 H 06/12/23 16:34 Pulse Ox 99 06/12/23 12:25 O2 Del Method Room Air 06/12/23 16:34 O2 Flow Rate 99 06/12/23 16:34 BMI result Body Mass Index 20.9 Const: General: cooperative Nutritional Appearance: average body habitus Orientation/consciousness: patient oriented x3 HEENT: Head: Yes normal to inspection Ears: hearing grossly normal bilaterally General nose exam: Normal external nose present Face and sinus: Yes normal facial exam Mouth: Normal oral and palatal mucosa present Neck: Neck: Yes normal visual inspection, Yes full ROM and Yes no lymphadenopathy Chest: Chest palpation & inspection: normal inspection of the chest Resp: Effort & Inspection: normal respiratory effort Auscultation: clear to auscultation bilaterally Cardio: Jugular venous distension: no JVD Rate: regular rate Rhythm: regular rhythm GI: Inspection: Yes normal to inspection Palpation (GI): Soft to palpation Skin: General skin exam: no rashes or lesions noted Lesions: no lesions Rashes: no rashes Neuro: General: patient oriented x3 Extrem: Other: Tender left shoulder decreased range of motion secondary to the pain Course Reevaluation(s) Reevaluation #1: I reviewed the case with the orthopedic surgeon Dr. Hampton he recommend reduction with presented with sedation and reduction 4 [address] Hampton also shoulder was reduced eventually Time: 16:46 Reevaluation #2: repeat xray at this time reviewed by me dislocation reduced now Time: 16:50 Medications Administered Discontinued Medications Generic Name Dose Route Start Last Admin Trade Name Mily PRN Reason Stop Dose Admin Fentanyl 50 mcg 06/12/23 11:28 06/12/23 11:38 Fentanyl Citrate/Pf 100 Mcg/2 Ml Vial IVPUSH 06/12/23 11:29 50 mcg ONCE ONE Administration Protocol Propofol 100 mg 06/12/23 12:53 06/12/23 13:02 Propofol 200 Mg/20 Ml Vial IVPUSH 06/12/23 12:54 100 mg ONCE ONE Administration Medical Decision Making Medical Decision Making [facility] Narrative: Patient presented with shoulder dislocation, this is a delayed presentation I spoke with Memo (OrthO) we will proceed with reduction Differential Diagnosis Differential Diagnoses: The differential diagnosis associated with the presentation includes Shoulder dislocation /shoulder fracture/chronic dislocation Admission/Observation Consideration of admission/observation: Escalation of care including admission/observation considered Consult Healthcare Provider Management of the patient was discussed with: Cross Country Coach Dr Hampton Independent Interpretation I performed an independent interpretation of an: Plain X-Ray Interpretation: xray reviwed and interpreted by me Radiology Impression Discussion of test interpretation with radiology: I have reviewed the radiologist's reading. External Record Review External record reviewed: Outpatient record I reviewed the record from [facility] where he was admitted from June 07 to June 11 Procedures Orthopedic Joint Reduction Joint #1: Time Out Performed: Yes Side: left Joint Reduction Location: shoulder Analgesia: procedural sedation Shoulder Technique Used (if applicable): traction/counter-traction and scapula manipulation Technique used: traction/counter-traction Post-reduction neuro exam: intact Post-reduction vascular: intact Post Reduction X-Ray Obtained: Yes Procedural Sedation Indication: fracture/dislocation reduction ASA Class: I Mallampati Class: I Preparation: gambling monitor applied, pulse oximeter, capnometry used, supplemental O2 applied and suction/airway equipment at bedside Fentanyl: IV Fentanyl dose (mcg): 50 IV Propofol dose (mg): 80 Patient Tolerated Procedure: well Complications: none Additional Comments: no complication Discharge Plan Discharge Clinical Impression: Dislocation of shoulder Patient Disposition: Home, Self-Care Instructions: Shoulder Dislocation (ED) Prescriptions: No Action levetiracetam [Keppra] 500 mg tablet 500 mg PO BID Qty: 180 0RF acetaminophen 325 mg Tablet 650 mg PO Q6H PRN (Reason: Pain, Mild (Pain Scale 1-3)) 30 Days Qty: 240 0RF docusate sodium 100 mg Capsule 100 mg PO BID 30 Days Qty: 60 0RF oxycodone 5 mg Tablet 5 mg PO Q4H PRN (Reason: Pain, Moderate(Pain Scale 4-6)) 7 Days Qty: 42 0RF Rx Instructions: Partial Fill upon patient request. Referrals: Barrington Hampton MD [Physician] - 2 days
[2023-06-12] MEDS: fentaNYL citrate/PF 100 MCG/2 ML VIAL 50 MCG IVPUSH (11:38)
[2023-06-12] MEDS: propofoL 200 MG/20 ML VIAL 100 MG IVPUSH (13:02)
--- NOTE | 2023-06-12 16:17 | PC.NURSE ---
not going to OR will get xrays and plan to DC home
== END 2023-06-12 17:00 | disposition home or self-care (01) ==
PROVIDERS: Emergency Provider Emergency Medicine
DX: S43.005A Unspecified dislocation of left shoulder joint, initial encounter (principal); M25.512 Pain in left shoulder; X58.XXXA Exposure to other specified factors, initial encounter; Y93.9 Activity, unspecified; Y92.9 Unspecified place or not applicable; Y99.9 Unspecified external cause status; Z79.899 Other long term (current) drug therapy
CPT/HCPCS: 23650; 73030; 96374; 96375; 99152; 99283; 99284; J3010

== ENCOUNTER 2023-07-15 08:31 | Emergency (ER) | payer MEDICAID, SELFPAY ==
--- NOTE | ~2023-07-15 | XR_ITS ---
EXAMINATION: XR SHOULDER, LEFT CLINICAL INFORMATION: Left shoulder pain status post reduction. COMPARISON: 06/12/2023 left shoulder radiographs. TECHNIQUE: AP external rotation, Grashey, scapular Y, and axillary views of the left shoulder. FINDINGS: Persistent small defect along the inferior margin of the bony glenoid is less pronounced. The joint spaces are unremarkable. The visualized left ribs are intact with the soft tissues are unremarkable. XR/XR shoulder LT 1V IMPRESSION: Persistent small defect along the inferior margin of the bony glenoid which is less pronounced. This suggests interval healing.
[2023-07-15 08:40] VITALS: BP 134/86; PULSE 54; PULSE 65; RESP 16; O2SAT 100; O2SAT 95; BMI 20.9
[2023-07-15 09:02] VITALS: BP 132/90; PULSE 60; RESP 18; O2SAT 98
--- NOTE | 2023-07-15 09:05 | ED_ITS ---
HPI - Extremity Problem General Chief complaint: Extremity Injury, Upper Stated complaint: L shoulder dislocation per EMS Time Seen by Provider: 07/15/23 08:41 Source: patient and old records reviewed Mode of arrival: EMS Limitations: no limitations History of Present Illness HPI Narrative: moved the wrong way no direct trauma or fall felt L shoulder dislocate usually has issues with R shoulder just had surger on R side. Complaint: extremity pain Onset (ago): minute(s) (15) Pain Consistency: constant Location: left and upper extremity Quality: aching and constant Radiation: none Relieving factors: immobilization Exacerbating factors: range of motion Associated symptoms: denies other symptoms Context: other (hx of R sided shoulder dislocations) Related Data Previous Rx's Medication Instructions Recorded levetiracetam 500 mg tablet 500 mg PO BID #180 tabs 05/13/23 (Keppra) acetaminophen 325 mg tablet 650 mg PO Q6H PRN Pain, Mild (Pain 05/20/23 Scale 1-3) 30 days #240 tabs docusate sodium 100 mg capsule 100 mg PO BID 30 days #60 caps 05/20/23 oxycodone 5 mg tablet 5 mg PO Q4H PRN Pain, 05/20/23 Moderate(Pain Scale 4-6) 7 days #42 tabs Allergies Allergy/AdvReac Type Severity Reaction Status Date / Time No Known Allergies Allergy Verified 07/15/23 08:44 Review of Systems Review of Systems: Constitutional : No Fever, No Chills Cardiovascular : No Chest Pain, No SOB Respiratory : No Cough, No Dyspnea Gastrointestinal : No Nausea, No Vomiting, No Diarrhea, No abdominal Pain Genitourinary : No Dysuria, No Hematuria Musculoskeletal : positive joint pain, No Myalgias, No Joint Swelling Skin : No Skin lacerations, No rash Neuro : No Weakness, No Numbness, No Loss of Consciousness, No Dizziness, No Headache Psych : No Anxiety/Panic, No Depression All other systems reviewed and are negative PMFSH Past Medical History Attestation statement: The following information was validated with the patient. Source: old records reviewed Medical History Hx of reduction of closed dislocation Social History Social History Household Members: None Housing: Apartment Do you presently have visiting nurse or other home services: No Alcohol intake: current Alcohol intake frequency: does not drink Patient Tobacco Use Status: Never used Tobacco e-Cigarette/Vaping Use: Never Used Second Hand Smoke Exposure: No Substance Use Type: Marijuana Advance Directives: Yes Advance Directives on File: Yes Advance Directives Date on File: 05/18/23 service: No Current occupational status: unemployed Physical Exam Vital Signs: Vital Signs: Last Vital Signs Pulse 60 07/15/23 09:02 Resp 18 07/15/23 09:02 BP 132/90 H 07/15/23 09:02 Pulse Ox 98 07/15/23 09:02 O2 Del Method Room Air 07/15/23 09:02 BMI result Body Mass Index 20.9 Appearance: Alert. Oriented X3. No acute distress. Eyes: Pupils equal, round and reactive to light. ENT: Pharynx normal. Neck: Normal inspection. Neck supple. CVS: Normal heart rate and rhythm. Pulses normal. Respiratory: No respiratory distress. Breath sounds normal. Abdomen: Soft and nontender. Skin: Skin warm and dry. Normal skin color. Normal skin turgor. Extremities: L shoulder 2+ radial pulse SILT intact no numbness humeral head appears to be posterior and divot felt anteriorly no humerus distally or clavicular ttp Neuro: Oriented X 3. No motor deficit. No sensory deficit. Medical Decision Making Medical Decision Making [facility] Narrative: 22 yo male here with L shoulder dislocation mechanism does not suggest fracture - at this time NV intact will attempt gentle scapula manipulation and put in place suspect posterior dislocation. If successful will sling and refer to orthopedics denies any other injuries. Differential Diagnosis Differential Diagnoses: The differential diagnosis associated with the presentation includes shoulder dislocation, fracture Lab Data [facility] Lab Attestation statement: I reviewed the patient's lab results. Independent Interpretation I performed an independent interpretation of an: Plain X-Ray (no dislocation) Radiology Impression Discussion of test interpretation with radiology: I have reviewed the radiologist's reading. External Record Review External record reviewed: Inpatient record Procedures Orthopedic Joint Reduction Joint #1: Time Out Performed: Yes Side: left Joint Reduction Location: shoulder Analgesia: none Shoulder Technique Used (if applicable): scapula manipulation Post-reduction neuro exam: intact Post-reduction vascular: intact Post Reduction X-Ray Obtained: Yes Post Reduction X-Ray Results: reduced Splint Applied: Yes Patient Tolerated Procedure: well and no complications Discharge Plan Discharge Clinical Impression: Dislocation of shoulder Qualifiers: Encounter type: initial encounter Laterality: left Qualified Code(s): S43.005A - Unspecified dislocation of left shoulder joint, initial encounter Patient Disposition: Home, Self-Care Instructions: Shoulder Dislocation (ED) Additional Instructions: wear sling for comfort for 5 days. take tylenol or motrin as needed for pain. avoid reaching behind or above you for 2 weeks no hands stands or impressive dance moves for 2 weeks return for pain, numbness, weakness or any other concerns. please contact your orthopedic doctor this week Prescriptions: No Action levetiracetam [Keppra] 500 mg tablet 500 mg PO BID Qty: 180 0RF acetaminophen 325 mg Tablet 650 mg PO Q6H PRN (Reason: Pain, Mild (Pain Scale 1-3)) 30 Days Qty: 240 0RF docusate sodium 100 mg Capsule 100 mg PO BID 30 Days Qty: 60 0RF oxycodone 5 mg Tablet 5 mg PO Q4H PRN (Reason: Pain, Moderate(Pain Scale 4-6)) 7 Days Qty: 42 0RF Rx Instructions: Partial Fill upon patient request. Stand Alone Forms: Work/School Release
== END 2023-07-15 09:19 | disposition home or self-care (01) ==
PROVIDERS: Emergency Provider Emergency Medicine
DX: S43.005A Unspecified dislocation of left shoulder joint, initial encounter (principal); W01.0XXA Fall on same level from slipping, tripping and stumbling without subsequent striking against object, initial encounter; Y93.9 Activity, unspecified; Y92.9 Unspecified place or not applicable; Y99.9 Unspecified external cause status; Z79.899 Other long term (current) drug therapy
CPT/HCPCS: 23650; 73020; 99283; 99284

== ENCOUNTER 2023-07-18 07:20 | Emergency (ER) | payer MEDICAID, SELFPAY ==
--- NOTE | 2023-07-18 07:29 | ED_ITS ---
HPI - Extremity Injury (Upper) General Stated Complaint: Left shoulder popped out per EMS Time Seen by Provider: 07/18/23 07:22 Source: patient and old records reviewed Mode of arrival: EMS Limitations: no limitations History of Present Illness HPI narrative: 22 yo male with recurrent L and R shoulder dislocations rolled over in bed and reached up with L arm and dislocated L shoulder no other injuries he is 5 days out from prior injury and reduction and just took his sling off. required surgery on R in past MD complaint: injury to: left and shoulder Onset (ago): minute(s) (just COMPLIANCE REVIEW SPECIALIST) Other Extremity Injury: left: shoulder Other injuries: none Handedness: right Place: home Severity: mild Relieving factors: immobilization Exacerbating factors: movement of extremity Context: other Associated symptoms: denies other symptoms Treatments prior to arrival: splint Related Data Previous Rx's Medication Instructions Recorded levetiracetam 500 mg tablet 500 mg PO BID #180 tabs 05/13/23 (Keppra) acetaminophen 325 mg tablet 650 mg PO Q6H PRN Pain, Mild (Pain 05/20/23 Scale 1-3) 30 days #240 tabs docusate sodium 100 mg capsule 100 mg PO BID 30 days #60 caps 05/20/23 oxycodone 5 mg tablet 5 mg PO Q4H PRN Pain, 05/20/23 Moderate(Pain Scale 4-6) 7 days #42 tabs Allergies Allergy/AdvReac Type Severity Reaction Status Date / Time No Known Allergies Allergy Verified 07/15/23 08:44 Review of Systems Review of Systems: Constitutional : No Fever, No Chills Cardiovascular : No Chest Pain, No SOB Respiratory : No Cough, No Dyspnea Gastrointestinal : No Nausea, No Vomiting, No Diarrhea, No abdominal Pain Genitourinary : No Dysuria, No Hematuria Musculoskeletal : positive joint pain, No Myalgias, No Joint Swelling Skin : No Skin lacerations, No rash Neuro : No Weakness, No Numbness, No Loss of Consciousness, No Dizziness, No Headache All other systems reviewed and are negative [facility] Past Medical History Attestation statement: The following information was validated with the patient. Medical History Hx of reduction of closed dislocation Social History Social History Household Members: None Housing: Apartment Do you presently have visiting nurse or other home services: No Alcohol intake: current Alcohol intake frequency: does not drink Patient Tobacco Use Status: Never used Tobacco e-Cigarette/Vaping Use: Never Used Second Hand Smoke Exposure: No Substance Use Type: Marijuana Advance Directives Date on File: 05/18/23 service: No Current occupational status: unemployed Physical Exam Vital Signs: Appearance: Alert. Oriented X3. No acute distress. Eyes: Pupils equal, round and reactive to light. ENT: Pharynx normal. Neck: Normal inspection. Neck supple. CVS: Pulses normal. Respiratory: No respiratory distress. Abdomen: Soft and non-tender. Skin: Skin warm and dry. Normal skin color. Extremities: No lower extremity edema. L shoulder deformity with dislocation distal NV intact. SILT intact 2+ radial pulse Neuro: Oriented X 3. No motor deficit. No sensory deficit. Medical Decision Making Medical Decision Making MDM Narrative: 22 yo male with recurrent dislocation here with L shoulder dislocation while moving in bed - here with c/o dislocation while reaching up - he is NV intact no trauma doubt fracture will reduce and place in sling x 1 week refer to orthopedics as soon as possible. no seizures reported, no trauma reported. Differential Diagnosis Differential Diagnoses: The differential diagnosis associated with the presentation includes strain, dislocation he is NV intact, no trauma doubt fracture Independent Historian Clinical information obtained from an independent historian. History obtained from or confirmed by: EMS External Record Review External record reviewed: Inpatient record Tests considered The following testing was considered but not selected: xray but clinically reduced and no trauma doubt fracture simple manipulation on arrival with successful reduction Procedures Orthopedic Joint Reduction Joint #1: Time Out Performed: Yes Side: left Joint Reduction Location: shoulder Analgesia: none Shoulder Technique Used (if applicable): scapula manipulation Post-reduction neuro exam: intact Post-reduction vascular: intact Post Reduction X-Ray Obtained: No Post Reduction X-Ray Results: reduced Splint Applied: Yes Patient Tolerated Procedure: well and no complications Orthopedic Splinting/Casting Injury #1: Side: left Upper Extremity Injury Location: shoulder Upper Extremity Immobilizer: sling/shoulder immobilizer Additional Comments: NV intact post application Discharge Plan Discharge Clinical Impression: Dislocation of shoulder Qualifiers: Encounter type: initial encounter Laterality: left Qualified Code(s): S43.005A - Unspecified dislocation of left shoulder joint, initial encounter Patient Disposition: Home, Self-Care Instructions: Shoulder Dislocation (ED) Additional Instructions: wear sling for 1 week. no lifting more than 10lbs for 2 weeks after sling comes off. no reaching above or behind you for 2 weeks. wear sling to sleep during the week. please call the orthopedic doctor. return for numbness, pain, worsening symptoms or any other concerns. Prescriptions: No Action levetiracetam [Keppra] 500 mg tablet 500 mg PO BID Qty: 180 0RF acetaminophen 325 mg Tablet 650 mg PO Q6H PRN (Reason: Pain, Mild (Pain Scale 1-3)) 30 Days Qty: 240 0RF docusate sodium 100 mg Capsule 100 mg PO BID 30 Days Qty: 60 0RF oxycodone 5 mg Tablet 5 mg PO Q4H PRN (Reason: Pain, Moderate(Pain Scale 4-6)) 7 Days Qty: 42 0RF Rx Instructions: Partial Fill upon patient request.
[2023-07-18 07:30] VITALS: BP 128/78; BP 141/92; PULSE 64; PULSE 74; RESP 16; TEMP 37.3; O2SAT 90; O2SAT 96; BMI 20.3
== END 2023-07-18 07:58 | disposition home or self-care (01) ==
PROVIDERS: Emergency Provider Emergency Medicine
DX: S43.005A Unspecified dislocation of left shoulder joint, initial encounter (principal); X50.1XXA Overexertion from prolonged static or awkward postures, initial encounter; Y93.84 Activity, sleeping; Y92.032 Bedroom in apartment as the place of occurrence of the external cause; Y99.9 Unspecified external cause status
CPT/HCPCS: 23650; 99282; 99284

== ENCOUNTER 2023-07-29 08:51 | Outpatient (REF) | payer MEDICAID, SELFPAY ==
--- NOTE | ~2023-07-29 | XR_ITS ---
EXAMINATION: XR SHOULDER, LEFT CLINICAL INFORMATION: Shoulder injury. COMPARISON: Left shoulder radiographs dated 07/15/2023 and 06/12/2023. TECHNIQUE: AP external rotation, Grashey, scapular Y, and axillary views of the left shoulder. FINDINGS: There is mild anterior displacement of the humeral head relative to the bony glenoid. A small defect along the inferior glenoid rim is again noted. The left acromioclavicular joint is intact. The visualized left ribs are intact with the soft tissues are unremarkable. XR/XR shoulder LT min 2V IMPRESSION: Mild anterior humeral head subluxation. A small defect along in the inferior glenoid rim is again noted with similar appearance. Given the apparent instability, MRI should be considered.
== END 2023-07-29 08:52 | disposition home or self-care (01) ==
LOC: HO.HHCX 08:51
PROVIDERS: Visit Provider Emergency Medicine
DX: S49.92XA Unspecified injury of left shoulder and upper arm, initial encounter (principal)
CPT/HCPCS: 73030

== ENCOUNTER 2023-07-29 10:31 | Emergency (ER) | payer MEDICAID, SELFPAY ==
--- NOTE | ~2023-07-29 | CT_ITS ---
EXAMINATION: CT CERVICAL SPINE WITHOUT CONTRAST CLINICAL INFORMATION: Seizure, neck pain. COMPARISON: None available. TECHNIQUE: Multiple axial images of the cervical spine were obtained without the administration of intravenous contrast. Coronal and sagittal reformatted images were obtained. This CT examination was performed using dose optimization techniques as appropriate, variously including the following: *Automated exposure control *Adjustment of mA and/or kV according to patient size (this includes techniques or standardized protocols for targeted exams where dose is matched to indication/reason for exam; i.e. extremities or head) *Use of iterative reconstruction technique DLP: 401.29 mGy-cm FINDINGS: There is normal cervical lordosis and spinal alignment. The vertebral bodies and intervertebral disc spaces are unremarkable. The neural foramina are patent. The facet joints are unremarkable. The spinous and transverse processes are intact. Incidental prominent transverse processes are seen at C7, right greater than left. The cervical soft tissues are unremarkable. No lymphadenopathy. The thyroid gland is unremarkable. The lung apices are clear. CT/CT cervical spine wo IV con IMPRESSION: Unremarkable CT scan of the cervical spine.
--- NOTE | ~2023-07-29 | CT_ITS ---
EXAMINATION: CT HEAD WITHOUT CONTRAST CLINICAL INFORMATION: Seizure. COMPARISON: Head CT scan dated 08/02/2022. TECHNIQUE: Contiguous axial imaging was performed from the skull base to vertex without intravenous administration of contrast. Coronal and sagittal reformatted images were obtained. Patient to the study secondary to motion/streak artifact. This CT examination was performed using dose optimization techniques as appropriate, variously including the following: *Automated exposure control *Adjustment of mA and/or kV according to patient size (this includes techniques or standardized protocols for targeted exams where dose is matched to indication/reason for exam; i.e. extremities or head) *Use of iterative reconstruction technique DLP: 789.75 mGy-cm FINDINGS: The cortical sulci are normal. The lateral ventricles are symmetrical. The third and fourth ventricles are in their normal midline position. The basilar and prepontine cisterns are unremarkable. There is no acute intra or extracerebral abnormality. There is no mass effect or midline shift. Sections through the bony calvarium are unremarkable. The paranasal sinuses are clear. The bony orbits and orbital contents are unremarkable. CT/CT head/brain wo IV con IMPRESSION: Limited study. No overt acute intracranial pathology.
--- NOTE | ~2023-07-29 | XR_ITS ---
EXAMINATION: XR SHOULDER, LEFT CLINICAL INFORMATION: Pain COMPARISON: None available. TECHNIQUE: Views of the left shoulder. FINDINGS: This is a limited study. Unusual appearance to the glenohumeral articulation on 2 views. This could be due to position. Traumatic injury/fracture here cannot be excluded. Subluxation cannot be excluded XR/XR shoulder LT min 2V IMPRESSION: Unusual appearance to the proximal humeral head on 2 views could be positional but fracture or subluxation cannot be excluded. Exam is incomplete. If further evaluation is warranted consider CT
--- NOTE | ~2023-07-29 | XR_ITS ---
EXAMINATION: XR CHEST CLINICAL INFORMATION: Status post fall with chest trauma. COMPARISON: None available. TECHNIQUE: Frontal view of the chest was obtained. FINDINGS: The lungs are clear. The heart and mediastinal structures are unremarkable. Mild thoracic dextro scoliosis is noted. XR/XR chest 1V IMPRESSION: No acute cardiopulmonary process.
[2023-07-29 10:36] VITALS: BP 130/75; BP 145/88; PULSE 107; PULSE 110; RESP 17; TEMP 37.2; O2SAT 100; O2SAT 96; BMI 22.9
--- NOTE | 2023-07-29 10:38 | ECG_ITS ---
Test Reason : SEIZURE Blood Pressure : / mmHG Vent. Rate : 094 BPM Atrial Rate : 094 BPM P-R Int : 164 ms QRS Dur : 100 ms QT Int : 368 ms P-R-T Axes : 083 097 056 degrees QTc Int : 460 ms Normal sinus rhythm Rightward axis Borderline ECG When compared with ECG of 02-AUG-2022 20:40, Vent. rate has increased BY 42 BPM QT has lengthened Referred By: Deloris Lyle Electronically Signed By:JOSÉ MIGUEL DORADO
[2023-07-29 10:43] LABS: Glucose, Whole Blood 136 mg/dL (60-115)
--- NOTE | 2023-07-29 10:45 | ED_ITS ---
HPI - General Adult General Chief complaint: Seizure Stated complaint: DISLOCATED L SHOULDER S/P SZ,POST ICTAL FROM MD Time Seen by Provider: 07/29/23 10:34 Source: EMS Mode of arrival: EMS Limitations: other (postictal) History of Present Illness HPI narrative: this is a 22-year-old male history of recurrent left shoulder dislocations status post multiple reductions , epilepsy with non medication compliance pres enting to the emergency department for multiple complaints. According to EMS patient went to the [facility] walk-in for concerned that he dislocated his left shoulder this morning after lifting it up while laying in bed, according to notes patient lifted his left arm reaching up and felt like he was dislocated. Patient was placed in a sling, after patient left the appointment he went to the pharmacy and had a tonic clonic seizure witnessed by multiple people, fell from standing with head strike and loss of consciousness. patient is postictal on arrival and you not provide me with a full history. Not on blood thinners. Arrives in cervical collar Related Data Previous Rx's Medication Instructions Recorded levetiracetam 500 mg tablet 500 mg PO BID #180 tabs 05/13/23 (Keppra) acetaminophen 325 mg tablet 650 mg PO Q6H PRN Pain, Mild (Pain 05/20/23 Scale 1-3) 30 days #240 tabs docusate sodium 100 mg capsule 100 mg PO BID 30 days #60 caps 05/20/23 oxycodone 5 mg tablet 5 mg PO Q4H PRN Pain, 05/20/23 Moderate(Pain Scale 4-6) 7 days #42 tabs Allergies Allergy/AdvReac Type Severity Reaction Status Date / Time No Known Allergies Allergy Verified 07/15/23 08:44 Review of Systems Review of Systems: Constitutional : No Weight loss, No Fever, No Chills, No Fatigue, No Malaise ENT/Mouth : No sore throat, No Rhinorrhea Eyes: No Eye Pain, No Swelling, No Redness Cardiovascular : No Chest Pain, No SOB, No Dyspnea on Exertion, No Orthopnea, No Edema, No Palpitations Respiratory : No Cough, No Sputum, No Wheezing Gastrointestinal : No Nausea, No Vomiting, No Diarrhea, No Constipation, No abdominal Pain, No Hematochezia, No Melena Genitourinary : No Dysuria, No Urinary Frequency, No Hematuria, Musculoskeletal : No joint pain, No Myalgias, No Joint Swelling Skin : No Skin Lesions, No rash Neuro : No Weakness, No Numbness, No Dizziness, No Headache All other systems reviewed and are negative Yes Unobtainable due to mental status PMFSH Past Medical History Attestation statement: The following information was validated with the patient. Source: old records reviewed and nursing notes reviewed Medical History Hx of reduction of closed dislocation Social History Social History Household Members: None Housing: Apartment Do you presently have visiting nurse or other home services: No Alcohol intake: current Alcohol intake frequency: does not drink Patient Tobacco Use Status: Never used Tobacco e-Cigarette/Vaping Use: Never Used Second Hand Smoke Exposure: No Substance Use Type: Marijuana Advance Directives: Yes Advance Directives on File: Yes Advance Directives Date on File: 05/18/23 service: No Current occupational status: unemployed Physical Exam ED Vital Signs: Vital Signs - 24 hr 07/29/23 10:36 07/29/23 12:00 07/29/23 14:00 Temperature 98.9 F Pulse Rate 107 H Respiratory Rate 17 16 15 Blood Pressure 130/75 Pulse Oximetry 96 Oxygen Delivery Method Room Air BMI result Body Mass Index 22.9 vital signs stable Appearance: Alert.? Oriented X3.? No acute distress.? Head: Normocephalic, atraumatic, no step-offs or deformities Eyes: Pupils equal, round and reactive to light.? ENT: Pharynx normal.? Neck: Normal inspection.? Neck supple.? CVS: Normal heart rate and rhythm.? Pulses normal.? Respiratory: No respiratory distress.? Breath sounds normal.? Abdomen: Soft and nontender.? Skin: Skin warm and dry.? Normal skin color.? Normal skin turgor.? + abrasion to forehead Extremities: No lower extremity edema.? No calf ttp. 5/5 strength to bilateral lower extremities and right upper extremity. Left upper extremity with pain with range of motion particularly overhead, patient has left upper extremity in a sling, 2+ radial pulses equal bilateral. No wrist drop. Normal sensation distally. No step-offs or deformities to bilateral clavicle region, humeral head. Neuro: Oriented X 3.? No motor deficit.? No sensory deficit. CN 2-12 intact Course Reevaluation(s) Reevaluation #1: Received critical lab result of lactic acid of 6.4 > likely secondary to seizure not infection CBC without anemia or leukocytosis. Chemistries without any acute electrolyte abnormalities requiring intervention. CT head and cervical spine with no acute findings. This is likely epileptic seizure based off of elevated lactic acid and CPK. Secondary to non med compliant XR shoulder LT min 2V IMPRESSION: Unusual appearance to the proximal humeral head on 2 views could be positional but fracture or subluxation cannot be excluded. Exam is incomplete. If further evaluation is warranted consider CT I did discuss these x-ray findings with Orthopedics Dr. Hampton recommends sling, outpatient follow-up, does not eat media intervention unless it is dislocated. No signs of neurovascular compromise on exam. Time: 13:59 Reevaluation #2: Patient states he is feeling better however does not feel comfortable going home he feels like he needs more resources at home. He feels like he needs a better living situation and he reports non med compliance due to forgetfulness. I did speak to case management about this patient. Patient has not had any s eizure-like activity while in the department. Feels well. Will have him follow-up with the orthopedic team and Neurology. At this time patient to be placed into observation to allow more time to be evaluated by Case Management. Time: 15:38 Medications Administered Discontinued Medications Generic Name Dose Route Start Last Admin Trade Name Freq PRN Reason Stop Dose Admin Levetiracetam 1,000 mg 07/29/23 10:34 07/29/23 10:58 Levetiracetam 1,000 Mg Tablet PO 07/29/23 10:35 1,000 mg ONCE ONE Administration Lorazepam 2 mg 07/29/23 10:35 07/29/23 10:58 Lorazepam 1 Mg Tablet PO 07/29/23 10:36 2 mg ONCE ONE Administration Medical Decision Making Medical Decision Making [facility] Narrative: 1056 22-year-old male presents with left shoulder discomfort and status post grand mal seizure while at the [facility] this happened prior to arrival. Physical exam significant fo patient in cervical collar. Alert and oriented x4. No lower extremity edema.? No calf ttp. 5/5 strength to bilateral lower extremities and right upper extremity. Left upper extremity with pain with range of motion particularly overhead, patient has left upper extremity in a sling, 2+ radial pulses equal bilateral. No wrist drop. Normal sensation distally. No step-offs or deformities to bilateral clavicle region, humeral head. Abrasion on forehead Will rule out traumatic injuries to head, neck, shoulder. Unlikely traumatic injury to chest, abdomen or pelvis. Will rule out metabolic derangements, dysrhythmia, hypoglycemia. I suspect that patient likely fell secondary to epilepsy and non med compliance. Plan at this time labs, imaging, EKG, seizure precautions. Will load patient with Keppra and give him 2 mg of IV lorazepam. Ativan will be given to raise seizure threshold Differential Diagnosis Differential Diagnoses: The differential diagnosis associated with the presentation includes Will rule out traumatic injuries to head, neck, shoulder. Unlikely traumatic injury to chest, abdomen or pelvis. Will rule out metabolic derangements, dysrhythmia, hypoglycemia. I suspect that patient likely fell secondary to epilepsy and non med compliance. Admission/Observation Consideration of admission/observation: Escalation of care including admission/observation considered likely Consult Healthcare Provider Management of the patient was discussed with: Associate Professor Of Anthropology (casemanagment & ortho ) Lab Data MDM Lab Attestation statement: I reviewed the patient's lab results. As above. 07/29/23 11:21 07/29/23 11:22 Labs: Lab Results 07/29/23 07/29/23 07/29/23 Range/Units 10:40 11:21 11:21 WBC (4.8-10.8) X10*3/uL RBC (4.60-5.80) X10*6/uL Hgb (14.0-18.0) g/dl Hct (42.0-52.0) % MCV (80.0-98.0) fL MCH (27.0-33.0) pg MCHC (31.0-36.0) g/dl RDW (11.0-16.0) % Plt Count (160-400) X10*3/uL MPV (9.4-12.4) fL Immature Gran % (Auto) (0.0-0.4) % Neut % (Auto) (45-73) % Lymph % (Auto) (20-40) % [place] % (Auto) (2-11) % Eos % (Auto) (0-4) % Baso % (Auto) (0-2) % Lymph # (Auto) (1.2-4.9) X10*3/uL [place] # (Auto) (0.1-1.2) X10*3/uL Eos # (Auto) (0.0-0.4) X10*3/uL Baso # (Auto) (0.0-0.2) X10*3/uL Abs Immat Gran (auto) (0.00-0.03) X10*3/uL Absolute Neuts (auto) (2.0-8.3) x10*3/uL Absolute Nucleated RBC (0.0-0.012) X10*3/uL Nucleated RBC % (auto) (0.0-0.2) /100WBC Sodium (135-145) mmol/L Potassium (3.3-5.1) mmol/L Chloride (96-108) mmol/L Carbon Dioxide (22-29) mmol/L Anion Gap (12-20) BUN (9-16) mg/dL Creatinine (0.5-1.4) mg/dL Estim Creat Clear Calc Estimated GFR POC Glucose 136 H (60-115) mg/dL Random Glucose (60-115) mg/dL Lactic Acid 6.4 H* (0.5-2.0) mmol/L Lactic Acid F/U @ 2Hr (0.5-2.0) mmol/L Calcium (8.4-10.2) mg/dL Total Bilirubin (0.0-1.0) mg/dL AST (5-37) U/L ALT (0-40) U/L Alkaline Phosphatase (39-117) U/L Total Creatine Kinase 199 H (38-174) U/L Total Protein (6.5-8.0) g/dL Albumin (3.5-5.0) g/dL 07/29/23 07/29/23 07/29/23 Range/Units 11:21 11:22 14:25 WBC 8.9 (4.8-10.8) X10*3/uL RBC 4.81 (4.60-5.80) X10*6/uL Hgb 14.6 (14.0-18.0) g/dl Hct 42.2 (42.0-52.0) % MCV 87.7 (80.0-98.0) fL MCH 30.4 (27.0-33.0) pg MCHC 34.6 (31.0-36.0) g/dl RDW 12.2 (11.0-16.0) % Plt Count 187 (160-400) X10*3/uL MPV 10.0 (9.4-12.4) fL Immature Gran % (Auto) 0.5 H (0.0-0.4) % Neut % (Auto) 84.6 H (45-73) % Lymph % (Auto) 10.6 L (20-40) % [place] % (Auto) 4.0 (2-11) % Eos % (Auto) 0.1 (0-4) % Baso % (Auto) 0.2 (0-2) % Lymph # (Auto) 0.9 L (1.2-4.9) X10*3/uL [place] # (Auto) 0.4 (0.1-1.2) X10*3/uL Eos # (Auto) 0.0 (0.0-0.4) X10*3/uL Baso # (Auto) 0.0 (0.0-0.2) X10*3/uL Abs Immat Gran (auto) 0.04 H (0.00-0.03) X10*3/uL Absolute Neuts (auto) 7.5 (2.0-8.3) x10*3/uL Absolute Nucleated RBC 0.000 (0.0-0.012) X10*3/uL Nucleated RBC % (auto) 0.0 (0.0-0.2) /100WBC Sodium 141 (135-145) mmol/L Potassium 3.7 (3.3-5.1) mmol/L Chloride 108 (96-108) mmol/L Carbon Dioxide 22 (22-29) mmol/L Anion Gap 15 (12-20) BUN 7 L (9-16) mg/dL Creatinine 1.16 (0.5-1.4) mg/dL Estim Creat Clear Calc 98.4 Estimated GFR > 60 POC Glucose (60-115) mg/dL Random Glucose 93 (60-115) mg/dL Lactic Acid (0.5-2.0) mmol/L Lactic Acid F/U @ 2Hr 1.3 (0.5-2.0) mmol/L Calcium 9.9 D (8.4-10.2) mg/dL Total Bilirubin 0.4 (0.0-1.0) mg/dL AST 17 (5-37) U/L ALT 10 (0-40) U/L Alkaline Phosphatase 68 (39-117) U/L Total Creatine Kinase (38-174) U/L Total Protein 7.5 (6.5-8.0) g/dL Albumin 4.5 (3.5-5.0) g/dL Independent Interpretation I performed an independent interpretation of an: EKG (non ischemic ventricular rate of 94, W[place] normal, QRS normal, QT/ QTC slightly prolonged. EKG normal sinus rhythm right axis deviation, QT slightly prolonged), Plain X-Ray (XR/XR shoulder LT min 2V IMPRESSION: Unusual appearance to the proximal humeral head on 2 views could be positional but fracture or subluxation cannot be excluded. Exam is incomplete. If further evaluation is warranted consider CT) and CT Scan (CT/CT head/brain wo IV con IMPRESSION: Limited study. No overt acute intracranial pathology. CT/CT cervical spine wo IV con IMPRESSION: Unremarkable CT scan of the cervical spine.) Radiology Impression Discussion of test interpretation with radiology: I have reviewed the radiologist's reading. Radiologist Impression: XR shoulder LT min 2V IMPRESSION: Unusual appearance to the proximal humeral head on 2 views could be positional but fracture or subluxation cannot be excluded. Exam is incomplete. If further evaluation is warranted consider CT CT head/brain wo IV con IMPRESSION: Limited study. No overt acute intracranial pathology. CT cervical spine wo IV con IMPRESSION: Unremarkable CT scan of the cervical spine. ? ? Independent Historian Clinical information obtained from an independent historian. History obtained from or confirmed by: EMS External Record Review External record reviewed: Inpatient record Prescription Management I considered prescription management with: Pain Medication and Other (Anti epileptic) Chronic Conditions Patient?s care impacted by: Other (Epilepsy, prior shoulder dislocations) Social Determinants Patient?s care significantly limited by Social Determinants of Health including: Other Social Determinant of Health Core Measures AMI core measures followed: Yes Measure exclusions: not indicated Critical Care Time Critical Care Time Critical Care Time: Yes Total Critical Care Time: 45 Attestation: I attest to this time spent taking care of the patient, obtaining history, physical, reviewing labs, imaging, speaking to my attending, speaking to specialist. Discharge Plan Discharge Clinical Impression: Epileptic seizure, Left shoulder pain Patient Disposition: Still a Patient Instructions: Epilepsy (ED), Shoulder Pain (ED) Additional Instructions: Take your medications as prescribed. If you were prescribed antibiotics today, it is important that you take your medication to their entirety, do not skip any doses, do not finish them early. Follow-up with your primary care provider this week. Return to the emergency department with new or worsening symptoms. Such as fevers, chills, chest pain, shortness of breath, nausea, vomiting, dizziness, headache, vision changes, lethargy In case of emergency call 911 your seizure was likely cause is secondary to non med compliance, please take your medications as prescribed and follow-up with neurology. In terms of your left shoulder pain please follow-up with orthopedics, and wear your sling as instructed. Prescriptions: No Action levetiracetam [Keppra] 500 mg tablet 500 mg PO BID Qty: 180 0RF acetaminophen 325 mg Tablet 650 mg PO Q6H PRN (Reason: Pain, Mild (Pain Scale 1-3)) 30 Days Qty: 240 0RF docusate sodium 100 mg Capsule 100 mg PO BID 30 Days Qty: 60 0RF oxycodone 5 mg Tablet 5 mg PO Q4H PRN (Reason: Pain, Moderate(Pain Scale 4-6)) 7 Days Qty: 42 0RF Rx Instructions: Partial Fill upon patient request. Referrals: [facility] [Primary Care Provider] - 2 days Stand Alone Forms: Work/School Release
[2023-07-29] MEDS: levETIRAcetam 1,000 MG TABLET 1000 MG PO (10:58)
[2023-07-29] MEDS: LORazepam 1 MG TABLET 2 MG PO (10:58)
--- NOTE | 2023-07-29 11:00 | PC.NURSE ---
pt RADHA from [facility] pharmacy after the pt had a grand mal seizure while standing in line. per EMS, pt went to [facility] about his left shoulder that frequently becomes dislocated. pt sts this happens when he's sleeping. [facility] called an uber for him to be brought to the ED when he stopped first in the pharmacy and had a seizure. pt lost consciousness, hit his head, and has an abrasion to the forehead. pt brought in c-collar. seizure precautions in place, line placed by EMS, EKG obtained, medicated per jan. pt resting quietly on stretcher in no apparent distress. call otto within reach. all pt needs met gunnar.
[2023-07-29 11:26] LABS: MANUAL DIFF FLAG NO
[2023-07-29 11:30] LABS: Basophils Percent Auto 0.2 % (0-2); Eosinophils Percent Auto 0.1 % (0-4); Hematocrit 42.2 % (42.0-52.0); Hemoglobin 14.6 g/dl (14.0-18.0); Imm Gran Abs Auto 0.04 X10*3/uL (0.00-0.03); Imm Gran Pct Auto 0.5 % (0.0-0.4); Lymphocytes Absolute Auto 0.9 X10*3/uL (1.2-4.9); Lymphocytes Percent Auto 10.6 % (20-40); Mean Corpuscular HGB Conc 34.6 g/dl (31.0-36.0); Mean Corpuscular Hemoglobin 30.4 pg (27.0-33.0); Mean Corpuscular Volume 87.7 fL (80.0-98.0); Monocytes Absolute Auto 0.4 X10*3/uL (0.1-1.2); Neutrophils Absolute Auto 7.5 x10*3/uL (2.0-8.3); Neutrophils Percent Auto 84.6 % (45-73); Platelet Count 187 X10*3/uL (160-400); Red Blood Count 4.81 X10*6/uL (4.60-5.80); Red Cell Distribution Width 12.2 % (11.0-16.0); White Blood Count 8.9 X10*3/uL (4.8-10.8)
--- NOTE | 2023-07-29 11:39 | PC.NURSE ---
pt's sister called to check in on pt. with pt's permission, sister was updated on pt's status. sister tells this rn that the patient is going through a lot right now, was recently evicted and she thinks he's sleeping on the streets. sister sts that he's been having a hard time talking about it or asking for help. she asks that the message be passed along that she's here for him if he needs anything even if it's just to talk. she wants him to know he's not alone. left number wtih this rn. Maura (sister): [phone]
[2023-07-29 11:41] LABS: Lactic Acid 6.4 mmol/L (0.5-2.0)
--- NOTE | 2023-07-29 11:41 | PC.NURSE ---
pt currently in CT scan
[2023-07-29 11:42] LABS: Alanine Aminotransferase 10 U/L (0-40); Albumin Level 4.5 g/dL (3.5-5.0); Alkaline Phosphatase 68 U/L (39-117); Anion Gap 15 (12-20); Aspartate Amino Transferase 17 U/L (5-37); Bilirubin Total 0.4 mg/dL (0.0-1.0); Blood Urea Nitrogen 7 mg/dL (9-16); Calcium 9.9 mg/dL (8.4-10.2); Carbon Dioxide 22 mmol/L (22-29); Chloride 108 mmol/L (96-108); Creatinine Clr Calc Pharmacy 98.4; Estimated Glomerular Filt Rate > 60; Glucose Random 93 mg/dL (60-115); Potassium 3.7 mmol/L (3.3-5.1); Sodium 141 mmol/L (135-145); Total Protein 7.5 g/dL (6.5-8.0)
[2023-07-29 12:00] VITALS: RESP 16
[2023-07-29 13:24] LABS: Reflex Lactate? Lactic Acid Added
[2023-07-29 14:00] VITALS: RESP 15
[2023-07-29 14:42] LABS: ~Lactic Acid-LAB USE ONLY 1.3 mmol/L (0.5-2.0)
--- NOTE | 2023-07-29 16:23 | PC.NURSE ---
pt awaiting CM consult. does not feel safe to leave. pt is extremely lethargic post ictal, sleeping on stretcher. takes force to wake pt up. rr even/unlabored. sating 100% on RA.
--- NOTE | 2023-07-29 16:26 | MHC.CM.ED ---
CM attempted to meet with patient at request of Vanna URBINA, but patient is very sleepy and will not wake to name. Will assess when patient is awake. Record from admission at [facility] on 06/07/2023-06/11/2023 with seizures. Documented x2 that patient is compliant with his Keppra. Will call his HCP/sister Allie Vela ([phone]).
[2023-07-29 18:43] VITALS: BP 112/71; PULSE 74; RESP 16; O2SAT 98
--- NOTE | 2023-07-29 19:57 | MHC.CM.ED ---
Addendum entered by Shauna Champagne 07/29/23 20:11: Pt is wide awake and requesting discharge. Pt told [facility] [employer] that he was evicted from his apartment. CM again spoke with patient. He admits to being evicted on Jul 23. States he can't pay rent. CM asked about social security disability. Pt states he got cut off from his disability because he did not go to his appointment. CM asked when this happened and patient stated 3 years ago. CM asked where he has been staying. Pt was agitated and asked why I was asking him so many questions. Pt states he can stay with a friend and he can get there by himself. CM asked if he could call his sister or other family for help. Pt expressed aggravation that CM was speaking to him about his sister. Pt states he wants his IV out and he wants to be discharged. Provider aware of conversation. Original Note: CM met with patient. He is still sleepy, but was able to answer my questions. Pt lives alone in his apartment. States he would like a different apartment, but feels safe and is able to care for himself. Pt has social security disability. Pt uses no services or DME. Pt emphatically states that he faithfully takes his medications every day. Pt is unemployed. HCP on file. Allie Freddie Vela (sister) is his HCP. Pt patients they had an arguement, but he believes she would help him if needed. Pt was sleepy during interview and needed to be verbally reminded to answer questions. Pt trying to sleep. States he will need transport home.Above conversation reviewed in [facility] [employer] [facility] [facility], including CM concerns that patient is too sleepy to use LYFT services to go home at this time. CM will follow for any discharge needs.
== END 2023-07-29 20:24 | disposition home or self-care (01) ==
PROVIDERS: Physician Assistant; Emergency Provider Student in an Organized Health Care Education/Training Program
DX: G40.909 Epilepsy, unspecified, not intractable, without status epilepticus (principal); M25.512 Pain in left shoulder; M24.412 Recurrent dislocation, left shoulder; Z91.81 History of falling
CPT/HCPCS: 36415; 70450; 71045; 72125; 73030; 80053; 82550; 82947; 83605; 85025; 93005; 99284

== ENCOUNTER 2023-10-05 13:22 | Outpatient (REF) | payer MEDICAID, SELFPAY ==
--- NOTE | ~2023-10-05 | XR_ITS ---
EXAMINATION: XR SHOULDER, LEFT CLINICAL INFORMATION: Acute pain left shoulder COMPARISON: None available. TECHNIQUE: Four views of the left shoulder. FINDINGS: There is posterior dislocation of the left glenohumeral joint. No fractures are seen. XR/XR shoulder LT min 2V IMPRESSION: Posterior dislocation of the left glenohumeral joint.
== END 2023-10-05 13:23 | disposition home or self-care (01) ==
LOC: HO.HHCX 13:22
PROVIDERS: Visit Provider General Practice
DX: M25.512 Pain in left shoulder (principal)
CPT/HCPCS: 73030

== ENCOUNTER 2023-12-25 12:46 | Outpatient (AMB) | payer MEDICAID, SELFPAY ==
--- NOTE | 2023-12-25 12:53 | A.OFFVIS_ITS ---
Intake Intake Visit Reasons: Newprob-Left shoulder pain Intake Note: Viki is a 23 year old right hand dominant male who presents today for a evaluation of his left shoulder pain. Patient reports having a history of seizures where he doesn't remember what happen to his left shoulder. He states that his left shoulder pain is a 5/10 on the pain scale. Allergies No Known Allergies Allergy (Verified 12/25/23 12:56) HPI Newprob-Left shoulder pain HPI Details 23-year-old right hand dominant male who presents in the office today for an evaluation of left shoulder pain. The patient present to the ED on 06/15/2023 status post a seizure that occurred on 06/07/2023, which lead to him be hospitalized at [facility] from 06/07/2023-06/11/2023. In the ED note from 06/12/2023 the patient stated he felt the dislocation occurred prior to being hospitalized. The left shoulder was reduced. He continued to have mulitple dislocations of the left shoulder after this event. While in the office today the patient confirms his history of seizures, therefore, he is unable to get an accurate history of possible left shoulder injuries. He reports his pain is a 5/10 while in the office today. Patient has a history of right shoulder ORIF on 05/19/[address] Hampton. He reports no pain in the right shoulder. [facility] Medical History Hx of reduction of closed dislocation Social History Household Members: None Housing: Apartment Do you presently have visiting nurse or other home services: No Alcohol intake: current Alcohol intake frequency: does not drink Patient Tobacco Use Status: Never used Tobacco e-Cigarette/Vaping Use: Never Used Second Hand Smoke Exposure: No Substance Use Type: Marijuana Advance Directives Date on File: 05/18/23 service: No Current occupational status: unemployed Review of Systems Const All systems reviewed & are unremarkable except as noted in HPI and below Physical Exam Const General: cooperative, healthy appearing and no acute distress Resp Effort & Inspection: normal respiratory effort and able to speak in complete sentences Cardio Rate: regular rate Peripheral pulses: Peripheral pulses 2+ throughout GI Palpation (GI): Soft to palpation Skin Lesions: no lesions Rashes: no rashes Extrem Other: Left shoulder: Normal to inspection. No ecchymosis, erythema, or edema. Full shoulder ROM in all planes. Negative empty can. Negative drop arm. Did not access sulcus sign or O?Raghu?s due to significant shoulder instability history. NVI. Assessment & Plan Assessment & Plan (1) Instability of shoulder joint: Code(s): M25.319 - Other instability, unspecified shoulder Qualifiers: Laterality: left Qualified Code(s): M25.312 - Other instability, left shoulder (2) Seizure: Code(s): R56.9 - Unspecified convulsions Plan Mr. Frazier is a 23-year-old right hand dominant male who presents in the office today for an evaluation of left shoulder pain. The patient present to the ED on 06/15/2023 status post a seizure that occurred on 06/07/2023, which lead to him be hospitalized at [facility] from 06/07/2023-06/11/2023. In the ED note from 06/12/2023 the patient stated he felt the dislocation occurred prior to being hospitalized. The left shoulder was reduced. He continued to have mulitple dislocations of the left shoulder after this event. While in the office today the patient confirms his history of seizures, therefore, he is unable to get an accurate history of possible left shoulder injuries. He reports his pain is a 5/10 while in the office today. Patient has a history of right shoulder ORIF on 05/19/[address] Hampton. He reports no pain in the right shoulder. A referral has been placed for the patient to work with physical therapy. I woud like to see him back in 6 weeks for re-evaluation with the likeihood of consideration of an MRI to further evaluate the integrity of the left shoulder. He understands that with his history of seizures he is not a good candidate for surgery. Follow up will be in 6 weeks, or sooner if needed. X-rays of the left shoulder, obtained on 10/05/2023, revealed: Posterior dislocation of the left glenohumeral joint. Orders: Orders PT Evaluation and Treatment Today M25.319 - Other instability, unspecified shoulder Patient Instructions: Scribed for Jenna Sandoval PA-C by kalee Bradshaw scribe, on 12/25/2023 at 12:54 pm, EST. Coding Level of Care Code Est Pt Level 4 (20731) Diagnoses Instability of left shoulder joint M25.312 Laterality: left Seizure R56.9
== END 2023-12-25 13:06 | disposition home or self-care (01) ==
PROVIDERS: Visit Provider Physician Assistant
DX: M25.312 Other instability, left shoulder (principal); R56.9 Unspecified convulsions
CPT/HCPCS: 99214

== ENCOUNTER → 2023-12-25 12:46 | Outpatient (BNVA) | payer MEDICAID, SELFPAY | PROVIDERS: Visit Provider Physician Assistant | DX: M25.312 Other instability, left shoulder (principal); R56.9 Unspecified convulsions | CPT/HCPCS: 99212 ==